=== PATIENT | male | born 1990 | race African-American/Black ===

== ENCOUNTER 2018-11-03 11:06 | Emergency (ER) | payer SELFPAY ==
--- OUTSIDE RECORDS SUMMARY | 2018-11-03 11:08 | XMS REPORT ---
:1990 [facility] Address [address] [place] [address] Care Team Providers Name Role Phone Unavailable Unavailable Unavailable Problems This patient has no known problems. Allergies, Adverse Reactions, Alerts This patient has no known allergies or adverse reactions. Medications This patient has no known medications. Encounters Start End Encounter Admission Attending Care Care Encounter Date/Time Date/Time Type Type Clinicians Facility Department ID 2017-05-15 2017-05-[address] [facility] [id number] 08:24:01 08:24:01 2017-02-23 2017-02-[address] [facility] [id number] 00:00:00 00:00:00
[2018-11-03] MEDS ORDERED: DIAZEPAM 5 MG TABLET ONE (11:43)
[2018-11-03] MEDS ORDERED: HYDROCODONE/APAP 5/325 MG TAB ONE (11:43)
--- NOTE | 2018-11-03 11:55 | RAD REPORT ---
EXAM DESCRIPTION: RAD - Ankle Left 3 View -11/03/2018 11:36 am CLINICAL HISTORY: Left ankle pain status post injury FINDINGS: Curvilinear avulsion fracture involves the lateral malleolus measuring 7 millimeters which appears subacute. No dislocation seen
--- NOTE | 2018-11-03 13:32 | ER ---
Nurse's Notes [facility] Name: Olivia Mosley Age: 28 yrs Sex: Male : 1990 Arrival Date: 11/03/2018 Time: 11:09 Bed 8 Private MD: Diagnosis: Nondisplaced fracture of lateral malleolus of left fibula Presentation: 11/03 11:09 Transition of care: patient was not received from another setting of care. Care prior sv to arrival: None. 11:09 Method Of Arrival: Ambulatory sv 11:10 Presenting complaint: Patient states: left ankle pain x 1 week. Onset of symptoms was sv October 27, 2018. 11:10 Acuity: ARACELIS 4 sv 11:42 Risk Assessment: Do you want to hurt yourself or someone else? Patient reports no ph desire to harm self or others. Initial Sepsis Screen: Does the patient meet any 2 criteria? No. Patient's initial sepsis screen is negative. Does the patient have a suspected source of infection? No. Patient's initial sepsis screen is negative. Triage Assessment: 11:13 General: Appears in no apparent distress. uncomfortable, well developed, Behavior is sv calm, cooperative, appropriate for age. Pain: Complains of pain in left ankle Pain currently is 6 out of 10 on a pain scale. Neuro: Level of Consciousness is awake, alert, obeys commands, Oriented to person, place, time, situation, Gait is steady. Respiratory: Respiratory effort is even, unlabored, Respiratory pattern is regular, symmetrical. Historical: - Allergies: 11:11 No Known Allergies; sv - PMHx: 11:11 None; sv - Immunization history:: Adult Immunizations unknown. - Social history:: Smoking status: Patient/guardian denies using tobacco. - Ebola Screening: : No symptoms or risks identified at this time. Screenin:42 Abuse screen: Denies threats or abuse. Denies injuries from another. Nutritional ph screening: No deficits noted. Tuberculosis screening: No symptoms or risk factors identified. Fall Risk None identified. Assessment: 11:30 General: Appears in no apparent distress. uncomfortable, well groomed, Behavior is ph cooperative, appropriate for age, anxious. Pain: Complains of pain in left lateral malleolus and left medial malleolus. Neuro: Level of Consciousness is awake, alert, obeys commands, Oriented to person, place, time, situation. Cardiovascular: Capillary refill < 3 seconds in bilateral fingers Patient's skin is warm and dry. Pulses are palpable in right dorsalis pedis artery and left dorsalis pedis artery. Respiratory: Airway is patent Respiratory effort is even, unlabored. Derm: Skin is intact, is healthy with good turgor, Skin is pink, warm \T\ dry. Musculoskeletal: Circulation, motion, and sensation intact. Range of motion: limited in left ankle Swelling present in left lateral ankle, left medial ankle and anterior aspect of left ankle. Vital Signs: 11:12 BP 135 / 89; Pulse 115; Resp 18; Temp 98.1; Pulse Ox 99% ; Height 5 ft. 6 in. (167.64 sv cm); Pain 6/10; 13:00 BP 127 / 81; Pulse 89; Resp 16; Temp 98.0; Pulse Ox 99% on R/A; Pain 2/10; ph ED Course: 11:09 Patient arrived in ED. mr 11:09 Arm band placed on. sv 11:10 Rodney Morales PA is PHCP. jmm 11:10 Luke Watson MD is Attending Physician. jmm 11:11 Triage completed. sv 11:26 Caron Diaz, RN is Primary Nurse. ph 11:33 Ankle Left 3 View XRAY In Process Unspecified. EDMS 11:42 Patient has correct armband on for positive identification. Bed in low position. Call ph light in reach. Side rails up X 1. Door closed. Noise minimized. Warm blanket given. 13:30 Nahid Aburto MD is Referral Physician. jmm 13:47 Crutch training done. Orthoglass splint: Posterior short lleg splint applied on left em1 leg. stirrup splint applied on left leg. 13:58 No provider procedures requiring assistance completed. Patient did not have IV access ph during this emergency room visit. Administered Medications: 11:37 Drug: Valium 5 mg Route: PO; ph 12:15 Follow up: Response: No adverse reaction; Pain is decreased ph 11:39 Drug: [place] 5 mg-325 mg 1 tabs Route: PO; ph 13:15 Follow up: Response: No adverse reaction; Pain is decreased ph Outcome: 13:31 Discharge ordered by . jmm 13:58 Patient left the ED. ph 13:58 Discharged to home ambulatory, with crutches, with significant other. ph 13:58 Condition: good 13:58 Discharge instructions given to patient, significant other, Instructed on discharge instructions, follow up and referral plans. medication usage, Demonstrated understanding of instructions, follow-up care, medications, Prescriptions given X 1. Signatures: Dispatcher [employer] Mary Ann Alvarez RN RN Rodney Morales PA PA [facility] Nata Babin, [facility] Caron Diaz RN RN ph Corrections: (The following items were deleted from the chart) 11:13 11:12 BP 149 / 126; Pulse 115bpm; Resp 18bpm; Pulse Ox 99%; Temp 98.1F; Height 5 ft. 6 sv in.; Pain 6/10; sv 11:13 11:12 BP 149 / 126; Pulse 115bpm; Resp 18bpm; Pulse Ox 99%; Temp 98.1F; Height 5 ft. 6 sv in.; Pain 6/10; sv
--- NOTE | 2018-11-03 13:32 | EDPHYS ---
Physician Documentation [facility] Name: Olivia Mosley Age: 28 yrs Sex: Male : 1990 Arrival Date: 11/03/2018 Time: 11:09 Bed 8 Private MD: ED Physician Luke Watson HPI: 11/03 11:20 This 28 yrs old Black Male presents to ER via Ambulatory with complaints of Ankle jmm Injury. 11:20 The patient presents with an injury, pain. Onset: The symptoms/episode began/occurred jmm acutely, 2 week(s) ago. This is a 28 year old male with no chronic medical conditions that presents to the ED with complaints of left ankle pain. Patient states he twisted his ankle while running out his door. Patient has had ongoing pain with pain on weight bearing. . Historical: - Allergies: 11:11 No Known Allergies; sv - PMHx: 11:11 None; sv - Immunization history:: Adult Immunizations unknown. - Social history:: Smoking status: Patient/guardian denies using tobacco. - Ebola Screening: : No symptoms or risks identified at this time. ROS: 11:20 Constitutional: Negative for fever, chills, and weight loss, Cardiovascular: Negative jmm for chest pain, palpitations, and edema, Respiratory: Negative for shortness of breath, cough, wheezing, and pleuritic chest pain. 11:20 MS/extremity: Positive for injury or acute deformity, pain, swelling. 11:20 All other systems are negative. Exam: 11:20 Constitutional: This is a well developed, well nourished patient who is awake, alert, jmm and in no acute distress. Head/Face: atraumatic. Eyes: EOMI, no conjunctival erythema appreciated ENT: Moist Mucus Membranes Neck: Trachea midline, Supple Chest/axilla: Normal chest wall appearance and motion. Cardiovascular: Regular rate and rhythm. No edema appreciated Respiratory: Normal respirations, no respiratory distress appreciated Abdomen/GI: Non distended, soft Back: Normal ROM Skin: General appearance color normal 11:20 Musculoskeletal/extremity: swelling noted to the left ankle, left lateral malleolus tender to palpation, full dorsalis pulse, compartments are soft, NVI. No pain on palpation of the left 5th metatarsal.. Vital Signs: 11:12 BP 135 / 89; Pulse 115; Resp 18; Temp 98.1; Pulse Ox 99% ; Height 5 ft. 6 in. (167.64 sv cm); Pain 6/10; 13:00 BP 127 / 81; Pulse 89; Resp 16; Temp 98.0; Pulse Ox 99% on R/A; Pain 2/10; ph Procedures: 12:11 Splinting: Splint applied to anterior aspect of left ankle using Orthoglass splint, patsy applied by tech. Examined by me, post splint application: neurovascular intact, 2+ distal pulses palpable, brisk capillary refill noted, Patient tolerated well. MDM: 11:20 Patient medically screened. [facility] 13:28 Data reviewed: vital signs, nurses notes, radiologic studies, plain films. Counseling: patsy I had a detailed discussion with the patient and/or guardian regarding: the historical points, exam findings, and any diagnostic results supporting the discharge/admit diagnosis, radiology results, the need for outpatient follow up, to return to the emergency department if symptoms worsen or persist or if there are any questions or concerns that arise at home. ED course: Patient advised to follow up with ortho. Given compartment syndrome return precautions. Patient understood and agrees with the plan of care. . 11/03 11:21 Order name: Ankle Left 3 View XRAY; Complete Time: 11:56 [facility] 11/03 11:57 Order name: Crutches; Complete Time: 13:47 [facility] 11/03 12:34 Order name: Posterior Orthoglass Ankle Splint: with stirrup; Complete Time: 13:46 [facility] Administered Medications: 11:37 Drug: Valium 5 mg Route: PO; ph 12:15 Follow up: Response: No adverse reaction; Pain is decreased ph 11:39 Drug: [place] 5 mg-325 mg 1 tabs Route: PO; ph 13:15 Follow up: Response: No adverse reaction; Pain is decreased ph Disposition: 11/04 07:46 Co-signature as Attending Physician, Luke Watson MD I agree with the assessment and aldair plan of care. Disposition: 11/03/18 13:31 Discharged to Home. Impression: Nondisplaced fracture of lateral malleolus of left fibula. - Condition is Stable. - Discharge Instructions: Ankle Fracture. - Prescriptions for Ultracet 37.5- 325 mg Oral Tablet - take 1 tablet by ORAL route every 6 hours - for up to 5 days; do not exceed 8 tablets per day.; 12 tablet. - Medication Reconciliation Form, Thank You Letter, Antibiotic Education, Prescription Opioid Use, Work release form form. - Follow up: Nahid Aburto MD; When: 2 - 3 days; Reason: Recheck today's complaints, Continuance of care, Re-evaluation by your physician. Signatures: Dispatcher [employer] Mary Ann Alvarez RN RN sv Anderson, Corey, MD MD cha Mickail, Joel, PA PA jmm Hall, Patricia, RN RN ph Corrections: (The following items were deleted from the chart) 11/03 12:34 11:57 Splint - Posterior Leg ordered. patsy garner 13:58 13:31 11/03/2018 13:31 Discharged to Home. Impression: Nondisplaced fracture of lateral ph malleolus of left fibula. Condition is Stable. Forms are Medication Reconciliation Form, Thank You Letter, Antibiotic Education, Prescription Opioid Use. Follow up: Nahid Aburto; When: 2 - 3 days; Reason: Recheck today's complaints, Continuance of care, Re-evaluation by your physician. [email or web address]
== END 2018-11-03 13:58 | disposition home or self-care (01) ==
LOC: ER 11:06
PROC: 2W3RX1Z Immobilization of Left Lower Leg using Splint (ICD-10-PCS; principal; 2018-11-03)
DX: S82.65XA Nondisplaced fracture of lateral malleolus of left fibula, initial encounter for closed fracture (principal); X50.1XXA Overexertion from prolonged static or awkward postures, initial encounter; Y93.02 Activity, running
CPT/HCPCS: 99284

== ENCOUNTER 2018-12-01 22:03 | Emergency (ER) | payer SELFPAY ==
--- OUTSIDE RECORDS SUMMARY | 2018-12-01 22:06 | XMS REPORT ---
:1990 [facility] Address [address] [place] [address] Care Team Providers Name Role Phone Unavailable Unavailable Unavailable Problems This patient has no known problems. Allergies, Adverse Reactions, Alerts This patient has no known allergies or adverse reactions. Medications This patient has no known medications. Encounters Start End Encounter Admission Attending Care Care Encounter Date/Time Date/Time Type Type Clinicians Facility Department ID 2017-05-15 2017-05-[address] [facility] [id number] 08:24:01 08:24:01 2017-02-23 2017-02-[address] [facility] [id number] 00:00:00 00:00:00
[2018-12-01] MEDS ORDERED: KETOROLAC 30 MG/ML INJ ONE (23:48)
[2018-12-01] MEDS ORDERED: NA CHLORIDE 0.9% 1,000 ML ONE (23:48)
[2018-12-01] MEDS ORDERED: ONDANSETRON 4 MG/2 ML VIAL ONE (23:48)
[2018-12-01 23:54] LABS: Absolute Lymphocytes (CBC) 2.5 K/uL (0.7-4.9); Absolute Monocytes 0.7 K/uL (0.1-1.3); Absolute Neutrophil 6.4 K/uL (1.8-8.0); Basophils % 0.4 % (0-1.3); Eosinophils % 1.4 % (0-4.4); Hematocrit 39.6 % (39.6-49.0); MPV 9.4 fL (7.6-11.3); Monocytes % 7.5 % (3.3-12.3); RBC Red Blood Cell Count 4.66 M/uL (4.33-5.43)
[2018-12-02 00:15] LABS: ALT/SGPT 39 U/L (12-78); AST/SGOT 28 U/L (15-37); Albumin 3.8 g/dL (3.4-5.0); Alkaline Phosphatase 124 U/L (45-117); BUN Blood Urea Nitrogen 14 mg/dL (7-18); Bicarbonate 26 mmol/L (21-32); Bilirubin Direct < 0.1 mg/dL (0-0.2); Bilirubin Total 0.1 mg/dL (0.2-1.0); Glucose Level 81 mg/dL (74-106); Lipase 186 U/L (73-393); Potassium 3.4 mmol/L (3.5-5.1); Protein, Total 7.7 g/dL (6.4-8.2); Sodium Level 142 mmol/L (136-145)
--- NOTE | 2018-12-02 00:52 | EDPHYS ---
Physician Documentation [facility] Name: Olivia Mosley Age: 28 yrs Sex: Male : 1990 Arrival Date: 12/01/2018 Time: 22:04 Bed 25 Private MD: ED Physician David Irving HPI: 12/02 04:54 This 28 yrs old Black Male presents to ER via Ambulatory with complaints of Vomiting, tw4 Dizziness, Weakness, Sore Throat. 04:54 The patient presents to the emergency department with vomiting. Onset: The tw4 symptoms/episode began/occurred today. The symptoms are aggravated by nothing. The symptoms are alleviated by nothing. Associated signs and symptoms: The patient has no apparent associated signs or symptoms. The patient has not experienced similar symptoms in the past. Historical: - Allergies: 12/01 22:09 No Known Allergies; la1 - PMHx: 22:09 Hypertension; la1 - Immunization history:: Adult Immunizations up to date. - Social history:: Smoking status: Patient uses tobacco products, smokes two packs cigarettes per day. - Ebola Screening: : No symptoms or risks identified at this time. ROS: 12/02 04:54 Constitutional: Negative for fever, chills, and weight loss, Eyes: Negative for injury, tw4 pain, redness, and discharge, Cardiovascular: Negative for chest pain, palpitations, and edema, Respiratory: Negative for shortness of breath, cough, wheezing, and pleuritic chest pain, Back: Negative for injury and pain, MS/Extremity: Negative for injury and deformity, Skin: Negative for injury, rash, and discoloration. Abdomen/GI: Positive for vomiting, Negative for abdominal pain, black/tarry stool, rectal pain, rectal bleeding. Neuro: Positive for weakness, Negative for loss of consciousness, numbness, syncope. Exam: 04:54 Constitutional: This is a well developed, well nourished patient who is awake, alert, tw4 and in no acute distress. Head/Face: Normocephalic, atraumatic. Neck: Trachea midline, no thyromegaly or masses palpated, and no cervical lymphadenopathy. Supple, full range of motion without nuchal rigidity, or vertebral point tenderness. No Meningismus. Chest/axilla: Normal chest wall appearance and motion. Nontender with no deformity. No lesions are appreciated. Cardiovascular: Regular rate and rhythm with a normal S1 and S2. No gallops, murmurs, or rubs. Normal PMI, no JVD. No pulse deficits. Respiratory: Lungs have equal breath sounds bilaterally, clear to auscultation and percussion. No rales, rhonchi or wheezes noted. No increased work of breathing, no retractions or nasal flaring. Abdomen/GI: Soft, non-tender, with normal bowel sounds. No distension or tympany. No guarding or rebound. No evidence of tenderness throughout. Back: No spinal tenderness. No costovertebral tenderness. Full range of motion. Vital Signs: 12/01 22:09 BP 128 / 99; Pulse 118; Resp 16; Temp 98.7; Pulse Ox 98% on R/A; Weight 90.72 kg; la1 Height 5 ft. 6 in. (167.64 cm); 12/02 01:07 BP 121 / 78; Pulse 79; Resp 17; Temp 98; Pulse Ox 100% ; rv 12/01 22:09 Body Mass Index 32.28 (90.72 kg, 167.64 cm) la1 MDM: 12/01 22:49 Patient medically screened. tw4 12/02 04:54 Differential diagnosis: Nonspecific abd pain, gastritis. Data reviewed: vital signs, tw4 nurses notes. Data interpreted: Pulse oximetry: Interpretation: normal. Counseling: I had a detailed discussion with the patient and/or guardian regarding: the historical points, exam findings, and any diagnostic results supporting the discharge/admit diagnosis, lab results. Medication response: Zofran relieved the patient's nausea. Response to treatment: the patient's symptoms have resolved after treatment, nausea improved , and as a result, I will discharge patient. Special discussion: I discussed with the patient/guardian in detail that at this point there is no indication for admission to the hospital. It is understood, however, that if the symptoms persist or worsen the patient needs to return immediately for re-evaluation. 12/01 23:29 Order name: Basic Metabolic Panel tw4 12/01 23:30 Order name: CBC with Diff 4 12/01 23:30 Order name: Creatinine for Radiology 4 12/01 23:30 Order name: Hepatic Function 12/01:30 Order name: Lipase 12/01 23:30 Order name: Flu tw 12/01 23:30 Order name: IV Saline Lock; Complete Time: 23:44 tw4 12/01 23:30 Order name: Labs collected and sent; Complete Time: 23:44 [facility] 12/01 23:30 Order name: Basic Metabolic Panel EDMS 12/01 23:30 Order name: CBC with Automated Diff EDMS Administered Medications: 12/01 23:42 Drug: NS 0.9% 1000 ml Route: IV; Rate: 1 bolus; Site: left antecubital; rv 12/02 00:42 Follow up: IV Status: Completed infusion la1 12/01 23:42 Drug: TORadol 30 mg Route: IVP; Site: left antecubital; rv 12/02 00:38 Follow up: Response: No adverse reaction; Pain is decreased la1 00:43 Follow up: Response: No adverse reaction; Pain is decreased la1 12/01 23:42 Drug: Zofran 4 mg Route: IVP; Site: left antecubital; rv 12/02 00:38 Follow up: Response: No adverse reaction la1 00:43 Follow up: Response: No adverse reaction la1 Disposition: 12/02/18 00:51 Discharged to Home. Impression: nonspecific viral syndrome, Vomiting, Dehydration. - Condition is Stable. - Discharge Instructions: Dehydration, Adult, Nausea and Vomiting, Adult, Viral Respiratory Infection. - Prescriptions for Zofran 4 mg Oral Tablet - take 1 tablet by ORAL route every 12 hours As needed; 20 tablet. - Medication Reconciliation Form, Thank You Letter, Antibiotic Education, Prescription Opioid Use, Work release form form. - Follow up: Private Physician; When: Upon discharge from the Emergency Department; Reason: If symptoms return, Recheck today's complaints, Continuance of care. - Problem is new. - Symptoms have improved. Signatures: Dispatcher [employer] EDNC Emir Lara RN RN la1 David Irving MD MD tw4 René Latham RN RN rv Corrections: (The following items were deleted from the chart) 00:52 00:51 12/02/2018 00:51 Discharged to Home. Impression: nonspecific viral syndrome. tw4 Condition is Stable. Forms are Medication Reconciliation Form, Thank You Letter, Antibiotic Education, Prescription Opioid Use. Follow up: Private Physician; When: Upon discharge from the Emergency Department; Reason: If symptoms return, Recheck today's complaints, Continuance of care. Problem is new. Symptoms have improved. tw4 01:09 00:52 12/02/2018 00:51 Discharged to Home. Impression: nonspecific viral syndrome; rv Vomiting; Dehydration. Condition is Stable. Forms are Medication Reconciliation Form, Thank You Letter, Antibiotic Education, Prescription Opioid Use. Follow up: Private Physician; When: Upon discharge from the Emergency Department; Reason: If symptoms return, Recheck today's complaints, Continuance of care. Problem is new. Symptoms have improved. tw4
--- NOTE | 2018-12-02 00:52 | ER ---
Nurse's Notes [facility] Name: Olivia Mosley Age: 28 yrs Sex: Male : 1990 Arrival Date: 12/01/2018 Time: 22:04 Bed 25 Private MD: Diagnosis: nonspecific viral syndrome;Vomiting;Dehydration Presentation: 12/01 22:08 Presenting complaint: Patient states: I was at work and got a KNAPP and felt woozy then la1 threw up, now I feel like shit, congestion, nausea, KNAPP. Transition of care: patient was not received from another setting of care. Onset of symptoms was December 01, 2018. Risk Assessment: Do you want to hurt yourself or someone else? Patient reports no desire to harm self or others. Initial Sepsis Screen: Does the patient meet any 2 criteria? No. Patient's initial sepsis screen is negative. Does the patient have a suspected source of infection? No. Patient's initial sepsis screen is negative. Care prior to arrival: None. 22:08 Method Of Arrival: Ambulatory la1 22:08 Acuity: ARACELIS 3 la1 Triage Assessment: 22:00 GI: Reports vomiting. rv Historical: - Allergies: 22:09 No Known Allergies; la1 - PMHx: 22:09 Hypertension; la1 - Immunization history:: Adult Immunizations up to date. - Social history:: Smoking status: Patient uses tobacco products, smokes two packs cigarettes per day. - Ebola Screening: : No symptoms or risks identified at this time. Screenin:53 Abuse screen: Denies threats or abuse. Nutritional screening: No deficits noted. la1 Tuberculosis screening: No symptoms or risk factors identified. Fall Risk None identified. Assessment: 23:52 General: Appears in no apparent distress. Behavior is calm, cooperative. Pain: la1 Complains of pain in headache. Neuro: Level of Consciousness is awake, alert, obeys commands, Oriented to person, place, time, situation, Digital Sales Representative are equal bilaterally Moves all extremities. Full function Gait is steady, Speech is normal, Facial symmetry appears normal. Cardiovascular: Capillary refill < 3 seconds Patient's skin is warm and dry. Respiratory: Airway is patent Respiratory effort is even, unlabored, Respiratory pattern is regular, symmetrical. GI: Abdomen is round non-distended, Bowel sounds present X 4 quads. Abd is soft and non tender X 4 quads. : No signs and/or symptoms were reported regarding the genitourinary system. 12/02 00:38 Reassessment: Patient appears in no apparent distress at this time. No changes from la1 previously documented assessment. Patient and/or family updated on plan of care and expected duration. Pain level reassessed. Patient is alert, oriented x 3, equal unlabored respirations, skin warm/dry/pink. Vital Signs: 12/01 22:09 BP 128 / 99; Pulse 118; Resp 16; Temp 98.7; Pulse Ox 98% on R/A; Weight 90.72 kg; la1 Height 5 ft. 6 in. (167.64 cm); 12/02 01:07 BP 121 / 78; Pulse 79; Resp 17; Temp 98; Pulse Ox 100% ; rv 12/01 22:09 Body Mass Index 32.28 (90.72 kg, 167.64 cm) la1 ED Course: 12/01 22:04 Patient arrived in ED. es 22:08 Triage completed. la1 22:09 Arm band placed on left wrist. la1 22:49 David Irving MD is Attending Physician. tw4 23:43 Initial lab(s) drawn, by me, sent to lab. Flu and/or RSV swab sent to lab. Inserted lt1 saline lock: 20 gauge in left antecubital area, using aseptic technique. 23:44 Flu Sent. lt1 23:52 Emir Lara, RN is Primary Nurse. la1 23:53 Call light in reach. la1 12/02 00:43 CBC with Diff Sent. la1 00:43 Basic Metabolic Panel Sent. la1 01:08 No provider procedures requiring assistance completed. IV discontinued, intact, rv bleeding controlled, No redness/swelling at site. Pressure dressing applied. Administered Medications: 12/01 23:42 Drug: NS 0.9% 1000 ml Route: IV; Rate: 1 bolus; Site: left antecubital; rv 12/02 00:42 Follow up: IV Status: Completed infusion la1 12/01 23:42 Drug: TORadol 30 mg Route: IVP; Site: left antecubital; rv 12/02 00:38 Follow up: Response: No adverse reaction; Pain is decreased la1 00:43 Follow up: Response: No adverse reaction; Pain is decreased la1 12/01 23:42 Drug: Zofran 4 mg Route: IVP; Site: left antecubital; rv 12/02 00:38 Follow up: Response: No adverse reaction la1 00:43 Follow up: Response: No adverse reaction la1 Outcome: 00:51 Discharge ordered by . kallie 01:09 Discharged to home ambulatory. rv 01:09 Condition: good 01:09 Discharge instructions given to patient, family, Instructed on discharge instructions, follow up and referral plans. medication usage, Demonstrated understanding of instructions, follow-up care, medications, Prescriptions given X 1. 01:09 Patient left the ED. rv Signatures: Macarena Jerez Lee RN RN la1 David Irving MD MD tw4 René Latham RN RN Denisse Avina [facility]
== END 2018-12-02 01:09 | disposition home or self-care (01) ==
LOC: ER 22:03
DX: B34.9 Viral infection, unspecified (principal); R11.10 Vomiting, unspecified; R42 Dizziness and giddiness; I10 Essential (primary) hypertension; F17.210 Nicotine dependence, cigarettes, uncomplicated; E86.0 Dehydration
CPT/HCPCS: 36415; 80048; 80076; 83690; 85025; 87804; 96361; 96374; 96375; 99284; J2405; J7030

== ENCOUNTER 2018-12-14 11:16 | Emergency (ER) | payer SELFPAY ==
--- OUTSIDE RECORDS SUMMARY | 2018-12-14 11:18 | XMS REPORT ---
:1990 [facility] Address [address] [place] [address] Care Team Providers Name Role Phone Unavailable Unavailable Unavailable Problems This patient has no known problems. Allergies, Adverse Reactions, Alerts This patient has no known allergies or adverse reactions. Medications This patient has no known medications. Encounters Start End Encounter Admission Attending Care Care Encounter Date/Time Date/Time Type Type Clinicians Facility Department ID 2017-05-15 2017-05-15 Outpatient [facility] [id number] 08:24:01 08:24:01 2017-02-23 2017-02-23 Outpatient [facility] [id number] 00:00:00 00:00:00
[2018-12-14 11:50] LABS: Absolute Lymphocytes (CBC) 1.6 K/uL (0.7-4.9); Absolute Monocytes 1.3 K/uL (0.1-1.3); Absolute Neutrophil 8.9 K/uL (1.8-8.0); Basophils % 0.4 % (0-1.3); Eosinophils % 1.4 % (0-4.4); Hematocrit 40.1 % (39.6-49.0); Lymphocytes % 13.7 % (15.3-44.8); MPV 8.9 fL (7.6-11.3); Monocytes % 10.8 % (3.3-12.3)
[2018-12-14 12:08] LABS: ALT/SGPT 33 U/L (12-78); AST/SGOT 18 U/L (15-37); Albumin 3.6 g/dL (3.4-5.0); Alkaline Phosphatase 131 U/L (45-117); BUN Blood Urea Nitrogen 11 mg/dL (7-18); Bicarbonate 27 mmol/L (21-32); Bilirubin Direct < 0.1 mg/dL (0-0.2); Bilirubin Total 0.2 mg/dL (0.2-1.0); Glucose Level 79 mg/dL (74-106); Lipase 190 U/L (73-393); Potassium 3.7 mmol/L (3.5-5.1); Protein, Total 7.8 g/dL (6.4-8.2); Sodium Level 141 mmol/L (136-145)
[2018-12-14] MEDS ORDERED: MORPHINE 4 MG/ML SYR ONE (12:35)
[2018-12-14] MEDS ORDERED: ONDANSETRON 4 MG/2 ML VIAL ONE (12:35)
--- NOTE | 2018-12-14 13:01 | RAD REPORT ---
EXAM DESCRIPTION: CTAbdomen Pelvis W Contrast - 12/14/2018 12:38 pm CLINICAL HISTORY: Abdominal pain. ABD PAIN COMPARISON: No comparisons TECHNIQUE: Biphasic CT imaging of the abdomen and pelvis was performed with 100 ml non-ionic IV cont rast. All CT scans are performed using dose optimization technique as appropriate and may include automated exposure control or mA/KV adjustment according to patient size. FINDINGS: The lung bases are clear.Small hiatal hernia The liver, spleen, pancreas, adrenal glands and kidneys are within normal limits. No bowel obstruction, free air, free fluid or abscess. The appendix is normal. No evidence of signi ficant lymphadenopathy. No suspicious bony findings. IMPRESSION: No acute intra-abdominal or pelvic finding.
--- NOTE | 2018-12-14 13:28 | ER ---
Nurse's Notes [facility] Name: Olivia Mosley Age: 28 yrs Sex: Male : 1990 Arrival Date: 12/14/2018 Time: 11:20 Bed 20 Private MD: Unknown, Unknown Diagnosis: Noninfective gastroenteritis and colitis, unspecified Presentation: 12/14 11:21 Presenting complaint: Patient states: bodyaches, back pain, neck pain, n/v/d x 5 days. sv Transition of care: patient was not received from another setting of care. Onset of symptoms was December 09, 2018. Care prior to arrival: None. 11:21 Method Of Arrival: Wheelchair sv 11:21 Acuity: ARACELIS 3 sv 11:35 Risk Assessment: Do you want to hurt yourself or someone else? Patient reports no em desire to harm self or others. Initial Sepsis Screen: Does the patient meet any 2 criteria? No. Patient's initial sepsis screen is negative. Does the patient have a suspected source of infection? No. Patient's initial sepsis screen is negative. Historical: - Allergies: 11:23 No Known Allergies; sv - PMHx: 11:23 Hypertension; sv - PSHx: 11:23 None; sv - Immunization history:: Adult Immunizations up to date. - Social history:: Smoking status: Patient uses tobacco products, smokes one pack cigarettes per day. - Ebola Screening: : No symptoms or risks identified at this time. Screenin:35 Abuse screen: Denies threats or abuse. Nutritional screening: No deficits noted. em Tuberculosis screening: No symptoms or risk factors identified. Fall Risk None identified. Assessment: 11:35 General: Appears in no apparent distress. comfortable, Behavior is calm, cooperative, em Reports fever for 12-24 hours. Pain: Complains of pain in left lower quadrant Pain currently is 8 out of 10 on a pain scale. Neuro: Level of Consciousness is awake, alert, obeys commands, Oriented to person, place, time, situation. Cardiovascular: Capillary refill < 3 seconds Patient's skin is warm and dry. Respiratory: Reports cough that is non-productive, Airway is patent Respiratory effort is even, unlabored, Respiratory pattern is regular, symmetrical. GI: Abdomen is flat, Bowel sounds present X 4 quads. Abd is soft X 4 quads Abdomen is tender to palpation in left lower quadrant Reports diarrhea, nausea, vomiting, Patient currently denies bloody stool. : Denies burning with urination. EENT: Throat is clear is pink. Derm: Skin is intact, is healthy with good turgor, Skin is pink, warm \T\ dry. Musculoskeletal: Capillary refill < 3 seconds, Range of motion: intact in all extremities. 11:45 General: The previous assessment is accurate, call light remains within reach. ss 12:15 Reassessment: Patient appears in no apparent distress at this time. request medication em for nausea and pain, provider notified, new medication orders received. 13:30 Reassessment: Patient appears in no apparent distress at this time. Patient and/or em family updated on plan of care and expected duration. Pain level reassessed. Patient is alert, oriented x 3, equal unlabored respirations, skin warm/dry/pink. rates pain 4/10 Patient states feeling better. Patient states symptoms have improved. Vital Signs: 11:23 BP 131 / 94; Pulse 89; Resp 20; Temp 97.8; Pulse Ox 100% ; Weight 79.38 kg; Height 5 sv ft. 6 in. (167.64 cm); Pain 8/10; 12:23 BP 118 / 81; Pulse 81; Resp 18; Pulse Ox 99% on R/A; Pain 8/10; em 11:23 Body Mass Index 28.25 (79.38 kg, 167.64 cm) sv ED Course: 11:20 Patient arrived in ED. ag5 11:21 Unknown, Unknown is Private Physician. ag5 11:23 Triage completed. sv 11:24 [facility] nh 11:24 Brian Madrid MD is Attending Physician. nh 11:24 Arm band placed on. sv 11:35 Patient has correct armband on for positive identification. Bed in low position. Call em light in reach. Adult w/ patient. 11:35 Initial lab(s) drawn, by me, sent to lab. Inserted saline lock: 20 gauge in right em antecubital area, using aseptic technique. Blood collected. 11:39 Radiology exam delayed due to lab results not completed at this time. (BUN/Creatinine). mw3 11:43 Gerardo Mckeon LVN is Primary Nurse. em 12:[address] via stretcher. mw3 12:38 CT completed. Patient tolerated procedure well. Patient moved back from CT. mw3 12:41 CT Abd/Pelvis - W/Contrast In Process Unspecified. EDMS 13:48 No provider procedures requiring assistance completed. IV discontinued, intact, em bleeding controlled, No redness/swelling at site. Pressure dressing applied. Administered Medications: 12:24 Drug: Zofran 4 mg Route: IVP; Site: right antecubital; ss 13:48 Follow up: Response: No adverse reaction; Nausea is decreased em 12:26 Drug: morphine 4 mg Route: IVP; Site: right antecubital; ss 13:48 Follow up: Response: No adverse reaction; Pain is decreased em Outcome: 13:26 Discharge ordered by MD. nh 13:48 Discharged to home ambulatory, with family. em 13:48 Condition: stable 13:48 Discharge instructions given to patient, family, Instructed on discharge instructions, follow up and referral plans. medication usage, Demonstrated understanding of instructions, follow-up care, medications, Prescriptions given X 2. 13:51 Patient left the ED. em Signatures: Dispatcher [employer] EDMary Ann Duarte, RN RN Lily Villalba, LOAN ORIGINATOR LOAN ORIGINATOR pa Gerardo Mckeon, POLICE OFFICER BOOKING POLICE OFFICER BOOKING em Flores Vickers RN RN ss Willis, Michelle mw3 Michlea Hodges ag5
--- NOTE | 2018-12-14 13:28 | EDPHYS ---
Physician Documentation [facility] Name: Olivia Mosley Age: 28 yrs Sex: Male : 1990 Arrival Date: 12/14/2018 Time: 11:20 Bed 20 Private MD: Unknown, Unknown ED Physician Brian Madrid HPI: 12/14 13:21 This 28 yrs old Black Male presents to ER via Wheelchair with complaints of nh Nausea/Vomiting/Diarrhea, BODY ACHES. 13:21 The patient presents to the emergency department with nausea, vomiting, diarrhea. nh Onset: The symptoms/episode began/occurred 2 day(s) ago, 1 week(s) ago. Possible causes: unknown. The symptoms are aggravated by food , The symptoms are alleviated by nothing. Associated signs and symptoms: Pertinent positives: abdominal pain. Severity of symptoms: At their worst the symptoms were moderate just prior to arrival, in the emergency department the symptoms are unchanged. The patient has not experienced similar symptoms in the past. The patient has not recently seen a physician. Historical: - Allergies: 11:23 No Known Allergies; sv - PMHx: 11:23 Hypertension; sv - PSHx: 11:23 None; sv - Immunization history:: Adult Immunizations up to date. - Social history:: Smoking status: Patient uses tobacco products, smokes one pack cigarettes per day. - Ebola Screening: : No symptoms or risks identified at this time. ROS: 13:21 Eyes: Negative for injury, pain, redness, and discharge, ENT: Negative for injury, nh pain, and discharge, Neck: Negative for injury, pain, and swelling, Cardiovascular: Negative for chest pain, palpitations, and edema, Respiratory: Negative for shortness of breath, cough, wheezing, and pleuritic chest pain, Back: Negative for injury and pain, : Negative for injury, bleeding, discharge, and swelling, MS/Extremity: Negative for injury and deformity, Skin: Negative for injury, rash, and discoloration, Neuro: Negative for headache, weakness, numbness, tingling, and seizure, Psych: Negative for depression, anxiety, suicide ideation, homicidal ideation, and hallucinations, Allergy/Immunology: Negative for hives, rash, and allergies, Endocrine: Negative for neck swelling, polydipsia, polyuria, polyphagia, and marked weight changes, Hematologic/Lymphatic: Negative for swollen nodes, abnormal bleeding, and unusual bruising. 13:21 Constitutional: Positive for body aches. 13:21 Abdomen/GI: Positive for abdominal pain, nausea and vomiting. Exam: 13:21 Constitutional: This is a well developed, well nourished patient who is awake, alert, nh and in no acute distress. Head/Face: Normocephalic, atraumatic. Eyes: Pupils equal round and reactive to light, extra-ocular motions intact. Lids and lashes normal. Conjunctiva and sclera are non-icteric and not injected. Cornea within normal limits. Periorbital areas with no swelling, redness, or edema. ENT: Nares patent. No nasal discharge, no septal abnormalities noted. Tympanic membranes are normal and external auditory canals are clear. Oropharynx with no redness, swelling, or masses, exudates, or evidence of obstruction, uvula midline. Mucous membranes moist. Neck: Trachea midline, no thyromegaly or masses palpated, and no cervical lymphadenopathy. Supple, full range of motion without nuchal rigidity, or vertebral point tenderness. No Meningismus. Chest/axilla: Normal chest wall appearance and motion. Nontender with no deformity. No lesions are appreciated. Cardiovascular: Regular rate and rhythm with a normal S1 and S2. No gallops, murmurs, or rubs. Normal PMI, no JVD. No pulse deficits. Respiratory: Lungs have equal breath sounds bilaterally, clear to auscultation and percussion. No rales, rhonchi or wheezes noted. No increased work of breathing, no retractions or nasal flaring. Back: No spinal tenderness. No costovertebral tenderness. Full range of motion. Skin: Warm, dry with normal turgor. Normal color with no rashes, no lesions, and no evidence of cellulitis. MS/ Extremity: Pulses equal, no cyanosis. Neurovascular intact. Full, normal range of motion. Neuro: Awake and alert, GCS 15, oriented to person, place, time, and situation. Cranial nerves II-XII grossly intact. Motor strength 5/5 in all extremities. Sensory grossly intact. Cerebellar exam normal. Normal gait. Psych: Awake, alert, with orientation to person, place and time. Behavior, mood, and affect are within normal limits. 13:21 Abdomen/GI: Inspection: abdomen appears normal, Bowel sounds: normal, Palpation: moderate abdominal tenderness, in all quadrants. Vital Signs: 11:23 BP 131 / 94; Pulse 89; Resp 20; Temp 97.8; Pulse Ox 100% ; Weight 79.38 kg; Height 5 sv ft. 6 in. (167.64 cm); Pain 8/10; 12:23 BP 118 / 81; Pulse 81; Resp 18; Pulse Ox 99% on R/A; Pain 8/10; em 11:23 Body Mass Index 28.25 (79.38 kg, 167.64 cm) sv MDM: 11:24 Patient medically screened. nh 13:21 Data reviewed: vital signs, nurses notes, lab test result(s), radiologic studies, I nh have discussed the patient's presentation/case with the attending Emergency Department Physician; and as a result, I will discharge patient. Counseling: I had a detailed discussion with the patient and/or guardian regarding: the historical points, exam findings, and any diagnostic results supporting the discharge/admit diagnosis, lab results, radiology results, the need for outpatient follow up, to return to the emergency department if symptoms worsen or persist or if there are any questions or concerns that arise at home. 12/14 11:28 Order name: Basic Metabolic Panel; Complete Time: 12:09 la 12/14 11:28 Order name: CBC with Diff; Complete Time: 12:09 la 12/14 11:28 Order name: Creatinine for Radiology; Complete Time: 12:09 la 12/14 11:28 Order name: Hepatic Function; Complete Time: 12:09 la 12/14 11:28 Order name: Lipase; Complete Time: 12:09 la 12/14 11:30 Order name: CT Abd/Pelvis - W/Contrast; Complete Time: 13:10 la 12/14 11:28 Order name: IV Saline Lock; Complete Time: 11:43 la 12/14 11:28 Order name: Labs collected and sent; Complete Time: 11:43 la Administered Medications: 12:24 Drug: Zofran 4 mg Route: IVP; Site: right antecubital; ss 13:48 Follow up: Response: No adverse reaction; Nausea is decreased em 12:26 Drug: morphine 4 mg Route: IVP; Site: right antecubital; ss 13:48 Follow up: Response: No adverse reaction; Pain is decreased em Disposition: 12/14/18 13:26 Discharged to Home. Impression: Noninfective gastroenteritis and colitis, unspecified. - Condition is Stable. - Discharge Instructions: Viral Gastroenteritis, Adult. - Prescriptions for Bentyl 20 mg Oral Tablet - take 2 tablet by ORAL route every 6 hours As needed; 40 tablet. Zofran 4 mg Oral Tablet - take 1 tablet by ORAL route every 12 hours As needed; 20 tablet. - Medication Reconciliation Form, Thank You Letter, Antibiotic Education, Prescription Opioid Use, Work release form form. - Follow up: Private Physician; When: 5 - 6 days; Reason: Recheck today's complaints. - Problem is new. - Symptoms are unchanged. Addendum: 12/16/2018 06:50 Co-signature as Attending Physician, Brian Madrid MD I agree with the assessment and k dr plan of care. Signatures: Dispatcher [employer] Mary Ann Alvarez, RN RN Brian Connell MD MD [facility] Lily Ruff, TUBE DRAWING SUPERVISOR TUBE DRAWING SUPERVISOR la Gerardo Mckeon, SURGICAL CODER SURGICAL CODER em Flores Vickers, RN RN ss Corrections: (The following items were deleted from the chart) 12/14 13:51 13:26 12/14/2018 13:26 Discharged to Home. Impression: Noninfective gastroenteritis and em colitis, unspecified. Condition is Stable. Forms are Medication Reconciliation Form, Thank You Letter, Antibiotic Education, Prescription Opioid Use. Follow up: Private Physician; When: 5 - 6 days; Reason: Recheck today's complaints. Problem is new. Symptoms are unchanged. la
== END 2018-12-14 13:51 | disposition home or self-care (01) ==
LOC: ER 11:16
DX: K52.9 Noninfective gastroenteritis and colitis, unspecified (principal); I10 Essential (primary) hypertension; F17.210 Nicotine dependence, cigarettes, uncomplicated
CPT/HCPCS: 36415; 74177; 80048; 80076; 83690; 85025; 96374; 96375; 99284; J2405; Q9967

== ENCOUNTER 2018-12-24 17:49 | Emergency (ER) | payer SELFPAY ==
--- OUTSIDE RECORDS SUMMARY | 2018-12-24 17:51 | XMS REPORT ---
:1990 [facility] Address [address] [place] [address] Care Team Providers Name Role Phone Unavailable Unavailable Unavailable Problems This patient has no known problems. Allergies, Adverse Reactions, Alerts This patient has no known allergies or adverse reactions. Medications This patient has no known medications. Encounters Start End Encounter Admission Attending Care Care Encounter Date/Time Date/Time Type Type Clinicians Facility Department ID 2017-05-15 2017-05-15 Outpatient [facility] [id number] 08:24:01 08:24:01 2017-02-23 2017-02-23 Outpatient [facility] [id number] 00:00:00 00:00:00
[2018-12-24 18:31] LABS: Absolute Lymphocytes (CBC) 1.7 K/uL (0.7-4.9); Absolute Monocytes 1.1 K/uL (0.1-1.3); Absolute Neutrophil 8.8 K/uL (1.8-8.0); Basophils % 0.5 % (0-1.3); Eosinophils % 1.3 % (0-4.4); Hematocrit 40.8 % (39.6-49.0); Lymphocytes % 14.1 % (15.3-44.8); MPV 8.6 fL (7.6-11.3); Monocytes % 9.1 % (3.3-12.3); RBC Red Blood Cell Count 4.79 M/uL (4.33-5.43)
[2018-12-24] MEDS ORDERED: FENTANYL CITR 100 MCG/2 ML ONE (18:37)
[2018-12-24] MEDS ORDERED: ONDANSETRON 4 MG/2 ML VIAL ONE (18:37)
[2018-12-24 18:41] LABS: BUN Blood Urea Nitrogen 10 mg/dL (7-18); Bicarbonate 26 mmol/L (21-32); Glucose Level 89 mg/dL (74-106); Potassium 3.6 mmol/L (3.5-5.1); Sodium Level 142 mmol/L (136-145)
--- NOTE | 2018-12-24 19:01 | RAD REPORT ---
EXAM DESCRIPTION: CT - Abdomen Pelvis W Contrast - 12/24/2018 6:42 pm CLINICAL HISTORY: Abdominal pain, fever COMPARISON: CT study December 14 2018. TECHNIQUE: Biphasic, helical CT imaging of the abdomen and pelvis was performed following 100 ml non -ionic IV contrast. Oral contrast was given. All CT scans are performed using dose optimization technique as appropriate and may include automated exposure control or mA/KV adjustment according to patient size. FINDINGS: No suspicious findings in the lung bases. The liver, spleen, and pancreas show no suspicious findings. Gallbladder and biliary tree are also wi thout suspicious finding. Symmetric renal function is seen with no hydronephrosis or suspicious renal mass. No pyelonephritis o r acute parenchymal process. No bladder abnormalities. No adrenal abnormalities. No dilated bowel loops or bowel wall thickening. Appendix is normal. No free air, free fluid or infla mmatory stranding. No hernia, mass or bulky lymphadenopathy. No suspicious bony findings. IMPRESSION: Contrast enhanced CT abdomen and pelvis showing no significant or suspicious finding.
--- NOTE | 2018-12-24 19:10 | EDPHYS ---
Physician Documentation [facility] Name: Olivia Mosley Age: 28 yrs Sex: Male : 1990 Arrival Date: 12/24/2018 Time: 17:52 Bed 7 Private MD: ED Physician Luke Watson HPI: 12/24 18:21 This 28 yrs old Black Male presents to ER via Ambulatory with complaints of Abdominal jr8 Pain, Ear Pain, Sore Throat. 18:21 The patient presents with abdominal pain in the left lower quadrant. Onset: The jr8 symptoms/episode began/occurred gradually, 2 week(s) ago. The symptoms do not radiate. Associated signs and symptoms: none. The symptoms are described as stabbing. Modifying factors: The symptoms are alleviated by nothing, the symptoms are aggravated by movement. Severity of pain: At its worst the pain was moderate in the emergency department the pain is unchanged. The patient has not experienced similar symptoms in the past. The patient has been recently seen by a physician:. Patient stated that about 2 weeks ago he came to ED for n/v/d and generalized lower abdominal discomfort. CT negative for acute findings and diagnosed with gastroenteritis. Stated that those symptoms have resolved but now having localized LLQ abdominal pain that is worsening. Sore throat, ear pain, and chills that started yesterday . Historical: - Allergies: 17:54 No Known Allergies; hj - PMHx: 17:54 Hypertension; hj - PSHx: 17:54 None; hj - Immunization history:: Adult Immunizations up to date. - Ebola Screening: : No symptoms or risks identified at this time. ROS: 18:21 Constitutional: Positive for chills. jr8 18:21 ENT: Positive for ear pain, sore throat. 18:21 Abdomen/GI: Positive for abdominal pain, Negative for nausea, vomiting, and diarrhea, abdominal distension, anorexia, dysphagia, hematemesis, black/tarry stool, rectal pain, rectal bleeding, bowel incontinence, flatulence. 18:21 All other systems are negative. Exam: 18:21 Constitutional: This is a well developed, well nourished patient who is awake, alert, jr8 and in no acute distress. Eyes: Pupils equal round and reactive to light, extra-ocular motions intact. Lids and lashes normal. Conjunctiva and sclera are non-icteric and not injected. Cornea within normal limits. Periorbital areas with no swelling, redness, or edema. Neck: Trachea midline, no thyromegaly or masses palpated, and no cervical lymphadenopathy. Supple, full range of motion without nuchal rigidity, or vertebral point tenderness. No Meningismus. Cardiovascular: Regular rate and rhythm with a normal S1 and S2. No gallops, murmurs, or rubs. Normal PMI, no JVD. No pulse deficits. Respiratory: Lungs have equal breath sounds bilaterally, clear to auscultation and percussion. No rales, rhonchi or wheezes noted. No increased work of breathing, no retractions or nasal flaring. Back: No spinal tenderness. No costovertebral tenderness. Full range of motion. Skin: Warm, dry with normal turgor. Normal color with no rashes, no lesions, and no evidence of cellulitis. MS/ Extremity: Pulses equal, no cyanosis. Neurovascular intact. Full, normal range of motion. Neuro: Awake and alert, GCS 15, oriented to person, place, time, and situation. Cranial nerves II-XII grossly intact. Motor strength 5/5 in all extremities. Sensory grossly intact. Cerebellar exam normal. Normal gait. 18:21 ENT: Exam is negative for earache, ear discharge, TM abnormalities, nasal discharge, Mouth: Lips: moist, Oral mucosa: pink and intact, moist, Gums: pink, Tongue: is moist, Posterior pharynx: Airway: patent, Tonsils: bilaterally enlarged, with erythema, no exudate, no ulcerations, Uvula: midline, non-edematous, no erythema, swelling, is not appreciated, erythema, that is mild. 18:21 Abdomen/GI: Inspection: abdomen appears normal, Bowel sounds: active, all quadrants, Palpation: soft, in all quadrants, moderate abdominal tenderness, in the left lower quadrant, rebound tenderness, is not appreciated, voluntary guarding, is not appreciated, involuntary guarding, is not appreciated, no appreciated organomegaly, Indicators: McBurney's point is not tender, Zhu's sign is negative, Rovsing's sign is negative, Obturator sign is negative, Liver: no appreciated palpable abnormalities. Vital Signs: 17:54 BP 137 / 79; Pulse 94; Resp 18; Temp 98.7(O); Pulse Ox 100% on R/A; Weight 81.65 kg; hj Height 5 ft. 6 in. (167.64 cm); Pain 6/10; 19:19 BP 128 / 67; Pulse 80; Resp 18; Temp 98; Pulse Ox 100% ; rv 17:54 Body Mass Index 29.05 (81.65 kg, 167.64 cm) hj MDM: 17:58 Patient medically screened. jr8 19:05 Differential diagnosis: bowel obstruction, diverticulitis, non-specific abd pain, jr8 Pyelonephritis, Testicular Torsion, Ureterolithiasis, urinary tract infection, colitis. Data reviewed: vital signs, nurses notes, lab test result(s), radiologic studies, CT scan, and as a result, I will discharge patient. Data interpreted: Pulse oximetry: on room air is 100 %. Interpretation: normal. Counseling: I had a detailed discussion with the patient and/or guardian regarding: the historical points, exam findings, and any diagnostic results supporting the discharge/admit diagnosis, lab results, radiology results, the need for outpatient follow up, a order packer or packager, to return to the emergency department if symptoms worsen or persist or if there are any questions or concerns that arise at home. 12/24 18:05 Order name: Strep; Complete Time: 18:[address] [facility] 12/24 18:11 Order name: Basic Metabolic Panel; Complete Time: 18:[address] [facility] 12/24 18:11 Order name: CBC with Diff; Complete Time: 18:50 8 12/24 18:11 Order name: Creatinine for Radiology; Complete Time: 18:[address] [facility] 12/24 18:13 Order name: CT Abd/Pelvis - IV Contrast Only; Complete Time: 19:04 8 12/24 18:33 Order name: Throat Culture [facility] 12/24 18:11 Order name: IV Saline Lock; Complete Time: 18:[address] [facility] 12/24 18:11 Order name: Labs collected and sent; Complete Time: 18:26 Administered Medications: 18:25 Drug: fentaNYL (PF) 50 mcg Route: IVP; Site: right antecubital; rv 19:19 Follow up: Response: No adverse reaction; Pain is decreased rv 18:25 Drug: Zofran 4 mg Route: IVP; Site: right antecubital; rv 19:19 Follow up: Response: No adverse reaction rv Disposition: 12/24/18 19:06 Discharged to Home. Impression: Abdominal and pelvic pain, Acute upper respiratory infection, unspecified. - Condition is Stable. - Discharge Instructions: Abdominal Pain, Adult, Upper Respiratory Infection, Adult. - Prescriptions for Tessalon Perles 100 mg Oral Capsule - take 1 capsule by ORAL route every 8 hours As needed; 15 capsule. Guaifenesin AC 10- 100 mg/5 mL Oral Liquid - take 10 milliliter by ORAL route every 4 hours As needed; 240 milliliter. - Work release form, Family Work Release, Medication Reconciliation Form, Thank You Letter, Antibiotic Education, Prescription Opioid Use form. - Follow up: Anthony Khalil MD; When: 5 - 6 days; Reason: Recheck today's complaints, Continuance of care, Re-evaluation by your physician. - Problem is new. - Symptoms have improved. Signatures: Dispatcher [employer] EDMS Mehrdad Dennison PA PA jr8 Curry Damon RN RN René Latham RN RN rv Corrections: (The following items were deleted from the chart) 19:31 19:06 12/24/2018 19:06 Discharged to Home. Impression: Abdominal and pelvic pain; Acute rv upper respiratory infection, unspecified. Condition is Stable. Forms are Medication Reconciliation Form, Thank You Letter, Antibiotic Education, Prescription Opioid Use. Follow up: Anthony Khalil; When: 5 - 6 days; Reason: Recheck today's complaints, Continuance of care, Re-evaluation by your physician. Problem is new. Symptoms have improved. jr8
--- NOTE | 2018-12-24 19:10 | ER ---
Nurse's Notes [facility] Name: Olivia Mosley Age: 28 yrs Sex: Male : 1990 Arrival Date: 12/24/2018 Time: 17:52 Bed 7 Private MD: Diagnosis: Abdominal and pelvic pain;Acute upper respiratory infection, unspecified Presentation: 12/24 17:52 Presenting complaint: Patient states: my throat started stinging since yesterday and R hj ear is hurting; reports abd pain; reports fever and cold sweats;. Transition of care: patient was not received from another setting of care. Onset of symptoms was December 24, 2018. Risk Assessment: Do you want to hurt yourself or someone else? Patient reports no desire to harm self or others. Initial Sepsis Screen: Does the patient meet any 2 criteria? No. Patient's initial sepsis screen is negative. Does the patient have a suspected source of infection? No. Patient's initial sepsis screen is negative. Care prior to arrival: None. 17:52 Method Of Arrival: Ambulatory 17:52 Acuity: ARACELIS 3 hj Historical: - Allergies: 17:54 No Known Allergies; hj - PMHx: 17:54 Hypertension; hj - PSHx: 17:54 None; hj - Immunization history:: Adult Immunizations up to date. - Ebola Screening: : No symptoms or risks identified at this time. Screenin:02 Abuse screen: Denies threats or abuse. Denies injuries from another. Nutritional rv screening: No deficits noted. Tuberculosis screening: No symptoms or risk factors identified. Fall Risk None identified. Assessment: 18:00 General: Appears in no apparent distress. uncomfortable, Behavior is calm, cooperative. rv Pain: Complains of pain in left lower quadrant Pain radiates to left upper quadrant Pain currently is 6 out of 10 on a pain scale. Quality of pain is described as sharp, Pain began last week. Neuro: Level of Consciousness is awake, alert, obeys commands, Oriented to person, place, time, situation. Cardiovascular: Patient's skin is warm and dry. Respiratory: Airway is patent. GI: Reports lower abdominal pain, nausea. : No signs and/or symptoms were reported regarding the genitourinary system. EENT: No signs and/or symptoms were reported regarding the EENT system. Derm: Skin is intact. Musculoskeletal: No signs and/or symptoms reported regarding the musculoskeletal system. 19:27 Reassessment: Patient and/or family updated on plan of care and expected duration. Pain rv level reassessed. Patient is alert, oriented x 3, equal unlabored respirations, skin warm/dry/pink. Discharge instruction given to patient, verbalized the understanding of instruction. Pt left ED ambulatory tolerating well. Vital Signs: 17:54 BP 137 / 79; Pulse 94; Resp 18; Temp 98.7(O); Pulse Ox 100% on R/A; Weight 81.65 kg; hj Height 5 ft. 6 in. (167.64 cm); Pain 6/10; 19:19 BP 128 / 67; Pulse 80; Resp 18; Temp 98; Pulse Ox 100% ; rv 17:54 Body Mass Index 29.05 (81.65 kg, 167.64 cm) hj ED Course: 17:52 Patient arrived in ED. rg4 17:54 Triage completed. hj 17:54 Arm band placed on right wrist. hj 17:57 Yoav Betancur, JIMMY is Primary Nurse. ae4 17:58 Mehrdad Dennison PA is PHCP. jr8 17:58 Luke Watson MD is Attending Physician. jr8 18:02 Patient has correct armband on for positive identification. Placed in gown. Bed in low rv position. Call light in reach. Side rails up X 1. Adult w/ patient. Pulse ox on. NIBP on. 18:15 Radiology exam delayed due to IV insertion attempt and/or patient not having vm2 appropriate IV at this time. 18:44 CT Abd/Pelvis - IV Contrast Only In Process Unspecified. EDMS 19:06 Anthony Khalil MD is Referral Physician. jr8 19:20 IV discontinued, intact, bleeding controlled, No redness/swelling at site. Pressure rv dressing applied. 19:28 No provider procedures requiring assistance completed. rv Administered Medications: 18:25 Drug: fentaNYL (PF) 50 mcg Route: IVP; Site: right antecubital; rv 19:19 Follow up: Response: No adverse reaction; Pain is decreased rv 18:25 Drug: Zofran 4 mg Route: IVP; Site: right antecubital; rv 19:19 Follow up: Response: No adverse reaction rv Outcome: 19:06 Discharge ordered by MD. hurt 19:29 Discharged to home ambulatory, with family. rv 19:29 Condition: improved 19:29 Discharge instructions given to patient, Instructed on discharge instructions, follow up and referral plans. medication usage, Demonstrated understanding of instructions, follow-up care, medications, Prescriptions given X 2. 19:31 Patient left the ED. rv Signatures: Dispatcher [employer] EDMS Mehrdad Dennison PA PA jr8 Curry Damon, RN RN Ana Pryor 4 Stefani Bryan 2 René Latham RN RN rv Yoav Betancur, JIMMY RN ae4 Corrections: (The following items were deleted from the chart) 17:56 17:54 Pulse 94bpm; Resp 18bpm; Pulse Ox 100% RA; Temp 98.7F Oral; 81.65 kg; Height 5 hj ft. 6 in.; BMI: 29.0; Pain 6/10; hj 19:31 19:29 BP 128 / 67; Pulse 80bpm; Resp 18bpm; Pulse Ox 100%; Temp 98F; rv rv
== END 2018-12-24 19:31 | disposition home or self-care (01) ==
LOC: ER 17:49
DX: J06.9 Acute upper respiratory infection, unspecified (principal); R10.2 Pelvic and perineal pain; I10 Essential (primary) hypertension
CPT/HCPCS: 36415; 74177; 80048; 85025; 87070; 87081; 96374; 96375; 99284; J2405; J3010; Q9967

== ENCOUNTER 2019-02-04 15:42 | Emergency (ER) | payer SELFPAY ==
--- OUTSIDE RECORDS SUMMARY | 2019-02-04 15:45 | XMS REPORT ---
:1990 [facility] Address [address] [place] [address] Care Team Providers Name Role Phone Unavailable Unavailable Unavailable Problems This patient has no known problems. Allergies, Adverse Reactions, Alerts This patient has no known allergies or adverse reactions. Medications This patient has no known medications. Encounters Start End Encounter Admission Attending Care Care Encounter Date/Time Date/Time Type Type Clinicians Facility Department ID 2017-05-15 2017-05-15 Outpatient [facility] [id number] 08:24:01 08:24:01 2017-02-23 2017-02-23 Outpatient [facility] [id number] 00:00:00 00:00:00
[2019-02-04] MEDS ORDERED: DICYCLOMINE HCL 10 MG CAP ONE (16:46)
[2019-02-04] MEDS ORDERED: FAMOTIDINE 20 MG/2 ML VIAL IV ONE (16:46)
[2019-02-04] MEDS ORDERED: NA CHLORIDE 0.9% 1,000 ML ONE (16:46)
[2019-02-04] MEDS ORDERED: ONDANSETRON 4 MG/2 ML VIAL ONE (16:46)
[2019-02-04 16:47] LABS: Absolute Lymphocytes (CBC) 1.8 K/uL (0.7-4.9); Basophils % 0.4 % (0-1.3); Lymphocytes % 15.9 % (15.3-44.8); RBC Red Blood Cell Count 4.78 M/uL (4.33-5.43)
[2019-02-04 17:02] LABS: ALT/SGPT 33 U/L (12-78); AST/SGOT 15 U/L (15-37); Albumin 3.4 g/dL (3.4-5.0); Alkaline Phosphatase 123 U/L (45-117); BUN Blood Urea Nitrogen 11 mg/dL (7-18); Bicarbonate 28 mmol/L (21-32); Bilirubin Direct < 0.1 mg/dL (0-0.2); Bilirubin Total 0.3 mg/dL (0.2-1.0); Glucose Level 91 mg/dL (74-106); Lipase 137 U/L (73-393); Potassium 3.4 mmol/L (3.5-5.1); Protein, Total 7.6 g/dL (6.4-8.2); Sodium Level 142 mmol/L (136-145)
--- NOTE | 2019-02-04 17:49 | RAD REPORT ---
EXAM DESCRIPTION: RAD - Abdomen Acute Series - 02/04/2019 5:36 pm CLINICAL HISTORY: Abdominal pain COMPARISON: None. FINDINGS: Lungs are clear. Heart size and pulmonary vasculature are normal. No pleural effusion, pne umothorax or other acute cardiopulmonary process seen. Bowel gas pattern is nonspecific. No bowel obstruction, free air or other acute findings. No suspicio us calcifications. No other suspicious for significant findings. IMPRESSION: Negative acute abdomen series.
[2019-02-04 18:03] LABS: Urine Amorphous Sediment 3+ /HPF (NONE SEEN); Urine Bacteria <20 /HPF (NONE SEEN); Urine Culture Reflex Order NOT NEEDED
[2019-02-04 18:03] LABS: Urine Blood NEGATIVE (NEG); Urine Glucose NEGATIVE (NEG); Urine Protein NEGATIVE (NEG)
--- NOTE | 2019-02-04 18:19 | ER ---
Nurse's Notes [facility] Name: Olivia Mosley Age: 28 yrs Sex: Male : 1990 Arrival Date: 02/04/2019 Time: 15:43 Bed 19 Private MD: Diagnosis: Nausea;Diarrhea, unspecified;Acute pharyngitis Presentation: 02/04 15:50 Presenting complaint: Patient states: Vesicular appearing ulcers inside mouth for one aj day and diarrhea for 5 days. Transition of care: patient was not received from another setting of care. Onset of symptoms was February 09, 2019. Risk Assessment: Do you want to hurt yourself or someone else? Patient reports no desire to harm self or others. Initial Sepsis Screen: Does the patient meet any 2 criteria? No. Patient's initial sepsis screen is negative. Does the patient have a suspected source of infection? No. Patient's initial sepsis screen is negative. Care prior to arrival: None. 15:50 Method Of Arrival: Ambulatory aj 15:50 Acuity: ARACELIS 4 aj Triage Assessment: 15:51 General: Appears in no apparent distress. comfortable, Behavior is calm, cooperative, aj appropriate for age. Pain: Complains of pain in mouth. Neuro: Level of Consciousness is awake, alert, obeys commands, Oriented to person, place, time, situation, Appropriate for age. Respiratory: Airway is patent Respiratory effort is even, unlabored, Respiratory pattern is regular, symmetrical. GI: Abdomen is flat, non-distended, Reports diarrhea. Derm: Skin is intact, is healthy with good turgor, Skin is pink, warm \T\ dry. normal. Historical: - Allergies: 15:51 No Known Allergies; aj - Home Meds: 15:51 None [Active]; aj - PMHx: 15:51 Hypertension; aj - PSHx: 15:51 None; aj - Immunization history:: Adult Immunizations up to date. - Social history:: Smoking status: Patient/guardian denies using tobacco. - Ebola Screening: : Patient negative for fever greater than or equal to 101.5 degrees Fahrenheit, and additional compatible Ebola Virus Disease symptoms Patient denies exposure to infectious person Patient denies travel to an Ebola-affected area in the 21 days before illness onset No symptoms or risks identified at this time. Screenin:19 Abuse screen: Denies threats or abuse. Nutritional screening: No deficits noted. ae4 Tuberculosis screening: No symptoms or risk factors identified. Fall Risk None identified. Assessment: 16:00 General: Appears uncomfortable, Behavior is cooperative, anxious. Pain: Complains of ae4 pain in left buccal mucosa. Neuro: Level of Consciousness is awake, alert, obeys commands, Oriented to person, place, time, situation, Appropriate for age. Cardiovascular: Patient's skin is warm and dry. Respiratory: Airway is patent Respiratory effort is even, unlabored, Respiratory pattern is regular, symmetrical, Breath sounds are clear bilaterally. GI: Reports diarrhea, nausea. GI: Reports. : No signs and/or symptoms were reported regarding the genitourinary system. EENT: Oral mucosa is dry. Swelling to left inner oral mucosa.. Derm: Skin is normal. Musculoskeletal: No signs and/or symptoms reported regarding the musculoskeletal system. 17:00 Reassessment: Patient appears in no apparent distress at this time. Patient and/or ae4 family updated on plan of care and expected duration. Pain level reassessed. Patient states feeling better. 18:11 Reassessment: Provider at bedside discussing plan of care. ae4 Vital Signs: 15:51 BP 138 / 88; Pulse 101; Resp 19; Temp 98.6; Pulse Ox 100% on R/A; Weight 79.38 kg; aj Height 5 ft. 6 in. (167.64 cm); 16:51 BP 124 / 80; Pulse 82; Resp 18; Temp 98.5(TE); Pulse Ox 100% on R/A; mh5 18:12 BP 138 / 86; Pulse 77; Resp 16; Pulse Ox 99% on R/A; ae4 15:51 Body Mass Index 28.25 (79.38 kg, 167.64 cm) ED Course: 15:43 Patient arrived in ED. as 15:51 Triage completed. aj 15:51 Arm band placed on right wrist. Patient placed in an exam room. aj 15:53 Luke Nelson PA is PHCP. cp 15:54 Luke Watson MD is Attending Physician. cp 15:56 Yoav Betancur, JIMMY is Primary Nurse. ae4 16:00 Bed in low position. Call light in reach. Side rails up X 1. Adult w/ patient. Pulse ox ae4 on. NIBP on. Warm blanket given. 16:42 Initial lab(s) drawn, by oh, sent to lab. Urine collected: clean catch specimen, 5 cloudy, Strep swab sent to lab. Inserted saline lock: 22 gauge in right antecubital area, using aseptic technique. Blood collected. 16:42 Urine Microscopic Only Sent. 5 16:42 Basic Metabolic Panel Sent. 5 16:42 CBC with Diff Sent. 5 16:43 Creatinine for Radiology Sent. 5 16:43 Hepatic Function Sent. 5 16:43 Lipase Sent. 5 16:43 Strep Sent. 5 17:38 XRAY Abdomen Acute Series In Process Unspecified. EDMS 18:17 Anthony Khalil MD is Referral Physician. cp 18:36 No provider procedures requiring assistance completed. IV discontinued, intact, ae4 bleeding controlled, No redness/swelling at site. Pressure dressing applied. Administered Medications: 16:00 Drug: Zofran 4 mg Route: IVP; Site: right antecubital; ae4 18:37 Follow up: Response: Nausea is decreased ae4 16:35 Drug: NS 0.9% 1000 ml Route: IV; Rate: 1 bolus; Site: right antecubital; ae4 18:37 Follow up: IV Status: Completed infusion ae4 16:41 Drug: Bentyl 20 mg Route: PO; ae4 18:37 Follow up: Response: Pain is decreased ae4 16:41 Drug: Pepcid 20 mg Route: IVP; Site: right antecubital; ae4 18:36 Follow up: Response: No adverse reaction ae4 18:11 Drug: Potassium Effervescent Tablet 25 mEq Route: PO; ae4 18:36 Follow up: Response: Medication administered at discharge. ae4 Outcome: 18:18 Discharge ordered by MD. cp 18:36 Discharged to home ambulatory, with family. ae4 18:36 Condition: stable 18:36 Discharge instructions given to patient, Instructed on discharge instructions, follow up and referral plans. Demonstrated understanding of instructions, follow-up care, Prescriptions given X 2. 18:37 Patient left the ED. ae4 Signatures: Dispatcher [employer] EDShahana Antony RN RN aj Martinez, Amelia as Page, Corey, PA PA cp Martinez, Maria [facility] Yoav Betancur RN RN ae4
--- NOTE | 2019-02-04 18:20 | EDPHYS ---
Physician Documentation [facility] Name: Olivia Mosley Age: 28 yrs Sex: Male : 1990 Arrival Date: 02/04/2019 Time: 15:43 Bed 19 Private MD: ED Physician Luke Watson HPI: 02/04 16:10 This 28 yrs old Black Male presents to ER via Ambulatory with complaints of Mouth cp Swelling, Diarrhea. 16:10 The patient presents with ulceration. The problem is located in the tip of tongue. cp 16:10 Onset: The symptoms/episode began/occurred yesterday. cp 16:12 The patient presents with abdominal pain in the lower abdomen. cp 16:12 Onset: The symptoms/episode began/occurred 5 day(s) ago. Associated signs and symptoms: cp Pertinent positives: anorexia, nausea, vomiting, diarrhea times 5 days, Pertinent negatives: fever, inability to eat. The patient has experienced similar episodes in the past, multiple times, today's symptoms are similar, to when the patient was apparently diagnosed with gastroenteritis. The patient has been recently seen at the [facility], last month, for similar complaints labs were performed, CT scan was performed. Historical: - Allergies: 15:51 No Known Allergies; aj - Home Meds: 15:51 None [Active]; aj - PMHx: 15:51 Hypertension; aj - PSHx: 15:51 None; aj - Immunization history:: Adult Immunizations up to date. - Social history:: Smoking status: Patient/guardian denies using tobacco. - Ebola Screening: : Patient negative for fever greater than or equal to 101.5 degrees Fahrenheit, and additional compatible Ebola Virus Disease symptoms Patient denies exposure to infectious person Patient denies travel to an Ebola-affected area in the 21 days before illness onset No symptoms or risks identified at this time. ROS: 16:20 Constitutional: Negative for body aches, chills, fever, poor PO intake, weight loss. cp 16:20 Eyes: Negative for injury, pain, redness, and discharge. cp 16:20 ENT: Negative for drainage from ear(s), ear pain, sore throat, difficulty swallowing, difficulty handling secretions. 16:20 Cardiovascular: Negative for chest pain. 16:20 Respiratory: Negative for cough, shortness of breath, wheezing. 16:20 Abdomen/GI: Positive for nausea, diarrhea, Negative for constipation, black/tarry stool, rectal bleeding, active vomiting. 16:20 Back: Negative for pain at rest, pain with movement. 16:20 : Negative for urinary symptoms, flank pain, testicular pain 16:20 Skin: Negative for cellulitis, rash. 16:20 Neuro: Negative for altered mental status, headache, weakness. 16:20 All other systems are negative. Exam: 16:25 Constitutional: The patient appears in no acute distress, alert, awake, non-toxic, well cp developed, well nourished. 16:25 Head/Face: Normocephalic, atraumatic. cp 16:25 Eyes: Periorbital structures: appear normal, Conjunctiva: normal, no exudate, no injection, Sclera: no appreciated abnormality, Lids and lashes: appear normal, bilaterally. 16:25 ENT: External ear(s): are unremarkable, Ear canal(s): are normal, clear, TM's: are normal, Nose: is normal, Mouth: Lips: moist, Oral mucosa: pink and intact, moist, Posterior pharynx: is normal, airway is patent, no erythema, no exudate. 16:25 Neck: ROM/movement: is normal, is supple, without pain, no range of motions limitations, no meningismus, no nuchal rigidity. 16:25 Chest/axilla: Inspection: normal, Palpation: is normal, no crepitus, no tenderness. 16:25 Cardiovascular: Rate: tachycardic, Rhythm: regular. 16:25 Respiratory: the patient does not display signs of respiratory distress, Respirations: normal, no use of accessory muscles, no retractions, no splinting, no tachypnea, labored breathing, is not present, Breath sounds: are clear throughout, no decreased breath sounds, no stridor, no wheezing. 16:25 Abdomen/GI: Inspection: abdomen appears normal, Bowel sounds: active, all quadrants, Palpation: soft, in all quadrants, mild abdominal tenderness, in the right lower quadrant and left lower quadrant, rebound tenderness, is not appreciated, involuntary guarding, is not appreciated. 16:25 Back: pain, is absent, ROM is normal. 16:25 Skin: no rash present. Vital Signs: 15:51 BP 138 / 88; Pulse 101; Resp 19; Temp 98.6; Pulse Ox 100% on R/A; Weight 79.38 kg; aj Height 5 ft. 6 in. (167.64 cm); 16:51 BP 124 / 80; Pulse 82; Resp 18; Temp 98.5(TE); Pulse Ox 100% on R/A; mh5 18:12 BP 138 / 86; Pulse 77; Resp 16; Pulse Ox 99% on R/A; ae4 15:51 Body Mass Index 28.25 (79.38 kg, 167.64 cm) aj MDM: 15:58 Patient medically screened. cp 16:30 Differential diagnosis: appendicitis, bowel obstruction, gastritis, pancreatitis, cp Peptic Ulcer Disease, Perf. Duodenal Ulcer, Perf. Gastric Ulcer, colitis. 18:17 Data reviewed: vital signs, nurses notes, old medical records, lab test result(s), cp radiologic studies, plain films, and as a result, I will discharge patient. 18:17 Counseling: I had a detailed discussion with the patient and/or guardian regarding: the cp historical points, exam findings, and any diagnostic results supporting the discharge/admit diagnosis, lab results, radiology results, the need for outpatient follow up, for definitive care, a toby maker, to return to the emergency department if symptoms worsen or persist or if there are any questions or concerns that arise at home. ED course: VSS. Patient with multiple abdominal CTs over past 2 months after being seen in this ED. Labs reviewed today and similar to past results. Xrays of abdomen negative for obstruction of perforation. Will discharge to home for continued monitoring and recommend f/u with GI. 02/04 16:09 Order name: Strep; Complete Time: 17:03 cp 02/04 16:09 Order name: Basic Metabolic Panel; Complete Time: 17:11 cp 02/04 16:09 Order name: CBC with Diff; Complete Time: 17:03 cp 02/04 17:02 Interpretation: Normal except: WBC 11.1; HGB 13.1. cp 02/04 16:09 Order name: Creatinine for Radiology; Complete Time: 17:03 cp 02/04 16:09 Order name: Hepatic Function; Complete Time: 17:11 cp 02/04 16:09 Order name: Lipase; Complete Time: 17:11 cp 02/04 16:09 Order name: Urine Microscopic Only cp 02/04 17:10 Order name: Throat Culture EDFL 02/04 17:14 Order name: XRAY Abdomen Acute Series; Complete Time: 17:58 cp 02/04 17:48 Order name: Urine Dipstick--Ancillary (enter results) bd 02/04 16:09 Order name: IV Saline Lock; Complete Time: 16:43 cp 02/04 16:09 Order name: Labs collected and sent; Complete Time: 16:43 cp 02/04 16:09 Order name: Urine Dipstick-Ancillary (obtain specimen); Complete Time: 16:42 cp 02/04 17:57 Order name: PO challenge; Complete Time: 18:11 cp Administered Medications: 16:00 Drug: Zofran 4 mg Route: IVP; Site: right antecubital; ae4 18:37 Follow up: Response: Nausea is decreased ae4 16:35 Drug: NS 0.9% 1000 ml Route: IV; Rate: 1 bolus; Site: right antecubital; ae4 18:37 Follow up: IV Status: Completed infusion ae4 16:41 Drug: Bentyl 20 mg Route: PO; ae4 18:37 Follow up: Response: Pain is decreased ae4 16:41 Drug: Pepcid 20 mg Route: IVP; Site: right antecubital; ae4 18:36 Follow up: Response: No adverse reaction ae4 18:11 Drug: Potassium Effervescent Tablet 25 mEq Route: PO; ae4 18:36 Follow up: Response: Medication administered at discharge. ae4 Disposition: 02/04/19 18:18 Discharged to Home. Impression: Nausea, Diarrhea, unspecified, Acute pharyngitis. - Condition is Stable. - Discharge Instructions: Food Choices to Help Relieve Diarrhea, Adult, Diarrhea, Adult, Nausea, Adult, Pharyngitis. - Prescriptions for Bentyl 20 mg Oral Tablet - take 2 tablets by ORAL route every 6 hours As needed; 30 tablet. Zofran 4 mg Oral Tablet - take 1 tablet by ORAL route every 12 hours As needed; 20 tablet. - Medication Reconciliation Form, Thank You Letter, Antibiotic Education, Prescription Opioid Use, Work release form form. - Follow up: Anthony Khalil MD; When: 1 - 2 days; Reason: diarrhea. - Problem is an ongoing problem. - Symptoms have improved. Addendum: 02/07/2019 07:08 Co-signature as Attending Physician, Luke Watson MD I agree with the assessment and c johnson plan of care. Signatures: Dispatcher [employer] EDFL Shahana Kennedy, RN RN Luke Velarde MD MD cha Page, Corey, ILYA PA cp Yoav Betancur, RN RN ae4 Corrections: (The following items were deleted from the chart) 02/04 17:31 17:13 Abdomen Pelvis W Con+CT.RAD.BRZ ordered. [facility] 18:37 18:18 02/04/2019 18:18 Discharged to Home. Impression: Nausea; Diarrhea, unspecified; ae4 Acute pharyngitis. Condition is Stable. Forms are Medication Reconciliation Form, Thank You Letter, Antibiotic Education, Prescription Opioid Use. Follow up: Anthony Khalil; When: 1 - 2 days; Reason: diarrhea. Problem is an ongoing problem. Symptoms have improved. cp
[2019-02-04] MEDS ORDERED: POTASSIUM 25 MEQ EFFERV TAB ONE (18:25)
== END 2019-02-04 18:37 | disposition home or self-care (01) ==
LOC: ER 15:42
DX: R11.0 Nausea (principal); R19.7 Diarrhea, unspecified; J02.9 Acute pharyngitis, unspecified; I10 Essential (primary) hypertension
CPT/HCPCS: 36415; 74022; 80048; 80076; 81003; 81015; 83690; 85025; 87070; 87081; 96361; 96374; 96375; 99284; J2405; J7030

== ENCOUNTER 2019-03-02 09:37 | Emergency (ER) | payer SELFPAY ==
--- OUTSIDE RECORDS SUMMARY | 2019-03-02 09:40 | XMS REPORT ---
:1990 [facility] Address [address] [place] [address] Care Team Providers Name Role Phone Unavailable Unavailable Unavailable Problems This patient has no known problems. Allergies, Adverse Reactions, Alerts This patient has no known allergies or adverse reactions. Medications This patient has no known medications. Encounters Start End Encounter Admission Attending Care Care Encounter Date/Time Date/Time Type Type Clinicians Facility Department ID 2017-05-15 2017-05-15 Outpatient [facility] [id number] 08:24:01 08:24:01 2017-02-23 2017-02-23 Outpatient [facility] [id number] 00:00:00 00:00:00
[2019-03-02] MEDS ORDERED: DIAZEPAM 2 MG TABLET ONE (10:12)
[2019-03-02 11:03] LABS: Barbiturates NEGATIVE (NEGATIVE); Benzodiazepines NEGATIVE (NEGATIVE); Cocaine NEGATIVE (NEGATIVE); METHAMPHETAM NEGATIVE (NEGATIVE); Methadone NEGATIVE (NEGATIVE); Opiates NEGATIVE (NEGATIVE); Phencyclidine NEGATIVE (NEGATIVE); THC Cannibis POSITIVE (NEGATIVE)
--- NOTE | 2019-03-02 11:40 | RAD REPORT ---
EXAM DESCRIPTION: USExtremity Venous Uni Ltd03/02/2019 11:08 am CLINICAL HISTORY: left leg pain COMPARISON: None. FINDINGS: Left common femoral, superficial femoral, popliteal and posterior tibial veins are compre ssible and demonstrate augmentation. Doppler demonstrates good flow. IMPRESSION: No evidence of deep venous thrombosis involving the left lower extremity.
[2019-03-02 11:56] LABS: Urine Blood TRACE (NEG); Urine Glucose NEGATIVE (NEG); Urine Protein NEGATIVE (NEG); Urine Specific Gravity 1.025 (1.005-1.030); Urine pH 6.5 (5.0-7.0)
--- NOTE | 2019-03-02 11:56 | ER ---
Nurse's Notes [facility] Name: Olivia Mosley Age: 28 yrs Sex: Male : 1990 Arrival Date: 03/02/2019 Time: 09:39 Bed 14 Private MD: Diagnosis: Pain in left thigh;Pain in left shoulder Presentation: 03/02 09:50 Presenting complaint: Patient states: L thigh pain x 1 week, denies injury/ redness ss and/or swelling. Also c/o L shoulder pain with ROM x "months". Patient has old injury that he believes may be flaring up. Transition of care: patient was not received from another setting of care. Onset of symptoms is unknown. Risk Assessment: Do you want to hurt yourself or someone else? Patient reports no desire to harm self or others. Initial Sepsis Screen: Does the patient meet any 2 criteria? No. Patient's initial sepsis screen is negative. Does the patient have a suspected source of infection? No. Patient's initial sepsis screen is negative. Care prior to arrival: None. 09:50 Method Of Arrival: Ambulatory ss 09:50 Acuity: ARACELIS 4 ss Historical: - Allergies: 09:52 No Known Allergies; ss - Home Meds: 09:52 None [Active]; ss - PMHx: 09:52 Hypertension; ss - PSHx: 09:52 None; ss - Immunization history:: Adult Immunizations unknown. - Social history:: Smoking status: Patient uses tobacco products, smokes one pack cigarettes per day. - Ebola Screening: : Patient denies exposure to infectious person Patient denies travel to an Ebola-affected area in the 21 days before illness onset. Screenin:33 Abuse screen: Denies threats or abuse. Denies injuries from another. Nutritional ph screening: No deficits noted. Tuberculosis screening: No symptoms or risk factors identified. Fall Risk None identified. Assessment: 10:15 General: Appears in no apparent distress. uncomfortable, well groomed, Behavior is ph calm, cooperative, appropriate for age, Denies fever. Pain: Complains of pain in medial aspect of left thigh and anterior aspect of left shoulder. Neuro: Level of Consciousness is awake, alert, obeys commands, Oriented to person, place, time, situation. Cardiovascular: Capillary refill < 3 seconds in bilateral fingers Patient's skin is warm and dry. Respiratory: Airway is patent Respiratory effort is even, unlabored. Derm: Skin is intact, is healthy with good turgor, Skin is pink, warm \\T\\ dry. Musculoskeletal: Circulation, motion, and sensation intact. Range of motion: intact in all extremities, Swelling absent. Vital Signs: 09:52 BP 142 / 95; Pulse 90; Resp 19; Temp 98.0(O); Pulse Ox 100% on R/A; Height 5 ft. 6 in. ss (167.64 cm); Pain 8/10; 10:54 BP 132 / 101; Pulse 87; Resp 18; Pulse Ox 100% on R/A; ph 12:20 BP 127 / 87; Pulse 84; Resp 18; Temp 97.8; Pulse Ox 99% on R/A; Pain 4/10; ph ED Course: 09:39 Patient arrived in ED. as 09:39 Shann[facility] Farias [facility]C [facility]. snw 09:39 Ab June MD is Attending Physician. snw 09:51 Triage completed. ss 09:52 Arm band placed on right wrist. ss 09:55 Caron Diaz, JIMMY is Primary Nurse. ph 10:33 Patient has correct armband on for positive identification. Bed in low position. Call ph light in reach. Side rails up X2. Pulse ox on. NIBP on. Door closed. Noise minimized. Warm blanket given. Head of bed elevated. 10:34 Urine collected: urinal, clear. dh3 10:55 Radiology exam delayed due to PT IS GETTING US EXAM. jb2 11:07 US Extremity Venous Unilateral Ltd In Process Unspecified. EDMS 11:08 Ultrasound completed. Patient tolerated well. sg3 11:16 Shoulder Left (2 View) XRAY In Process Unspecified. EDMS 12:21 No provider procedures requiring assistance completed. Patient did not have IV access ph during this emergency room visit. Administered Medications: 10:16 Drug: Valium 2 mg Route: PO; ph 12:20 Follow up: Response: No adverse reaction; Pain is decreased ph Outcome: 11:55 Discharge ordered by . snw 12:21 Discharged to home ambulatory, with significant other. ph 12:21 Condition: good 12:21 Discharge instructions given to patient, Instructed on discharge instructions, follow up and referral plans. medication usage, Demonstrated understanding of instructions, follow-up care, medications, Prescriptions given X 1. 12:21 Patient left the ED. ph Signatures: Dispatcher [employer] EDMS Shannen Farias, ENMANUEL-C TRAIN GATEMAN-Lawrence Yanez Amelia as Smirch, Shelby, JIMMY MARQUEZ Caron Diaz RN RN Jose, [facility] Christy Williamson [facility]
--- NOTE | 2019-03-02 11:56 | RAD REPORT ---
EXAM DESCRIPTION: RAD - Shoulder Left 2 View - 03/02/2019 11:16 am CLINICAL HISTORY: Left shoulder pain FINDINGS: No acute fracture or dislocation seen. Calcification adjacent to the superior aspect of the humeral head may indicate calcific tendinitis or be the sequela of old trauma Cortical irregularity involving the lateral aspect of the humeral neck may be related to old trauma
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
== END 2019-03-02 12:21 | disposition home or self-care (01) ==
LOC: ER 09:37
DX: M79.652 Pain in left thigh (principal); M25.512 Pain in left shoulder; I10 Essential (primary) hypertension; F17.210 Nicotine dependence, cigarettes, uncomplicated
CPT/HCPCS: 80307; 81003; 93971; 99284

== ENCOUNTER 2019-03-30 10:28 | Emergency (ER) | payer SELFPAY ==
--- OUTSIDE RECORDS SUMMARY | 2019-03-30 10:30 | XMS REPORT ---
:1990 [facility] Address [address] [place] [address] Care Team Providers Name Role Phone Unavailable Unavailable Unavailable Problems This patient has no known problems. Allergies, Adverse Reactions, Alerts This patient has no known allergies or adverse reactions. Medications This patient has no known medications. Encounters Start End Encounter Admission Attending Care Care Encounter Date/Time Date/Time Type Type Clinicians Facility Department ID 2017-05-15 2017-05-15 Outpatient [facility] [id number] 08:24:01 08:24:01 2017-02-23 2017-02-23 Outpatient [facility] [id number] 00:00:00 00:00:00
[2019-03-30] MEDS ORDERED: ONDANSETRON 4 MG (ODT) TAB ONE (10:50)
[2019-03-30] MEDS ORDERED: NA CHLORIDE 0.9% 0 ML ONE (12:58)
[2019-03-30 13:01] LABS: Absolute Lymphocytes (CBC) 2.3 K/uL (0.7-4.9); Basophils % 0.4 % (0-1.3); Hematocrit 38.9 % (39.6-49.0); Lymphocytes % 21.1 % (15.3-44.8); MPV 8.8 fL (7.6-11.3); RBC Red Blood Cell Count 4.67 M/uL (4.33-5.43)
[2019-03-30] MEDS ORDERED: NA CHLORIDE 0.9% 1,000 ML ONE (13:05)
[2019-03-30 13:21] LABS: ALT/SGPT 33 U/L (12-78); AST/SGOT 15 U/L (15-37); Albumin 3.6 g/dL (3.4-5.0); Alkaline Phosphatase 133 U/L (45-117); BUN Blood Urea Nitrogen 11 mg/dL (7-18); Bicarbonate 27 mmol/L (21-32); Bilirubin Direct < 0.1 mg/dL (0-0.2); Bilirubin Total 0.3 mg/dL (0.2-1.0); Glucose Level 86 mg/dL (74-106); Lipase 117 U/L (73-393); Potassium 3.7 mmol/L (3.5-5.1); Protein, Total 7.7 g/dL (6.4-8.2); Sodium Level 143 mmol/L (136-145)
--- NOTE | 2019-03-30 14:01 | RAD REPORT ---
EXAM DESCRIPTION: CTAbdomen Pelvis W Contrast - 03/30/2019 1:54 pm CLINICAL HISTORY: Abdominal pain. right sided abdominal pain COMPARISON: Abdomen Pelvis W Contrast dated 12/24/2018; Abdomen Pelvis W Contrast dated 12/14/2018 TECHNIQUE: Biphasic CT imaging of the abdomen and pelvis was performed with 100 ml non-ionic IV cont rast. All CT scans are performed using dose optimization technique as appropriate and may include automated exposure control or mA/KV adjustment according to patient size. FINDINGS: The lung bases are clear. The liver, spleen, pancreas, adrenal glands and kidneys are within normal limits. No bowel obstruction, free air, free fluid or abscess. The appendix is normal. No evidence of signi ficant lymphadenopathy. No suspicious bony findings. IMPRESSION: No acute intra-abdominal or pelvic finding.
--- NOTE | 2019-03-30 14:19 | EDPHYS ---
Physician Documentation [facility] Name: Olivia Mosley Age: 28 yrs Sex: Male : 1990 Arrival Date: 03/30/2019 Time: 10:29 Bed 20 Private MD: ED Physician Brian Madrid HPI: 03/30 12:28 This 28 yrs old Black Male presents to ER via Ambulatory with complaints of Abdominal jmm Pain, Shoulder Pain, Vomiting. 12:28 The patient presents with abdominal pain. Onset: The symptoms/episode began/occurred jmm today. The symptoms do not radiate. The patient has not experienced similar symptoms in the past. This is a 28 tyear old male with a history of htn that presents to the ED with complaints of of cough, congestion beginning yesterday with nausea and diarrhea beginning today. Patient states multiple sick contacts at work and at home. . Historical: - Allergies: 10:53 No Known Allergies; hb - Home Meds: 10:53 None [Active]; hb - PMHx: 10:53 Hypertension; hb - PSHx: 10:53 None; hb - Immunization history:: Adult Immunizations up to date. - Social history:: Smoking status: Patient/guardian denies using tobacco. - Ebola Screening: : No symptoms or risks identified at this time. ROS: 12:28 Cardiovascular: Negative for chest pain, palpitations, and edema. jmm 12:28 Constitutional: Positive for body aches, malaise. 12:28 ENT: Positive for sinus congestion. 12:28 Respiratory: Positive for cough. 12:28 Abdomen/GI: Positive for abdominal pain, diarrhea. 12:28 All other systems are negative. Exam: 12:28 Constitutional: This is a well developed, well nourished patient who is awake, alert, jmm and in no acute distress. Head/Face: atraumatic. Eyes: EOMI, no conjunctival erythema appreciated ENT: Moist Mucus Membranes Neck: Trachea midline, Supple Chest/axilla: Normal chest wall appearance and motion. Cardiovascular: Regular rate and rhythm. No edema appreciated Respiratory: Normal respirations, no respiratory distress appreciated 12:28 Abdomen/GI: Inspection: abdomen appears normal, Bowel sounds: normal, Palpation: mild abdominal tenderness, in the right lower quadrant. 12:28 Back: ROM is normal, CVA tenderness, is absent. 12:28 Musculoskeletal/extremity: ROM: intact in all extremities. 12:28 Skin: Appearance: Color: normal in color. 12:28 Neuro: Orientation: is normal, Mentation: is normal, Memory: is normal. 12:28 Psych: Behavior/mood is pleasant, cooperative. Vital Signs: 10:53 BP 148 / 88; Pulse 86; Resp 18; Temp 98.7; Pulse Ox 100% on R/A; Weight 99.79 kg; hb Height 5 ft. 6 in. (167.64 cm); Pain 3/10; 13:08 BP 130 / 82; Pulse 75; Resp 18; Pulse Ox 100% on R/A; em 14:30 BP 134 / 84; Pulse 81; Resp 16; Pulse Ox 98% on R/A; em 10:53 Body Mass Index 35.51 (99.79 kg, 167.64 cm) hb MDM: 12:28 Patient medically screened. patsy 14:17 Data reviewed: vital signs, nurses notes. Counseling: I had a detailed discussion with patsy the patient and/or guardian regarding: the historical points, exam findings, and any diagnostic results supporting the discharge/admit diagnosis, lab results, radiology results, the need for outpatient follow up, to return to the emergency department if symptoms worsen or persist or if there are any questions or concerns that arise at home. 03/30 10:49 Order name: Flu 03/30 10:49 Order name: Strep 03/30 11:23 Order name: Group A Streptococcus Rapid Sc; Complete Time: 12:28 [facility] 03/30 11:34 Order name: Influenza Screen (A ; Complete Time: 12:28 [facility] 03/30 12:33 Order name: Basic Metabolic Panel [facility] 03/30 12:33 Order name: CBC with Diff [facility] 03/30 12:33 Order name: Creatinine for Radiology [facility] 03/30 12:33 Order name: Hepatic Function [facility] 03/30 12:33 Order name: Lipase [facility] 03/30 13:04 Order name: CBC with Automated Diff; Complete Time: 13:34 [facility] 03/30 13:21 Order name: Creatinine (Radiology Only); Complete Time: 13:34 [facility] 03/30 13:22 Order name: Basic Metabolic Panel; Complete Time: 13:34 [facility] 03/30 13:22 Order name: Liver (Hepatic) Function; Complete Time: 13:34 [facility] 03/30 13:22 Order name: Lipase; Complete Time: 13:34 [facility] 03/30 12:33 Order name: IV Saline Lock; Complete Time: 13:09 [facility] 03/30 12:33 Order name: Labs collected and sent; Complete Time: 13:09 [facility] 03/30 12:33 Order name: CT Abd/Pelvis - IV Contrast Only [facility] 03/30 14:03 Order name: CT; Complete Time: 14:16 EDAL Administered Medications: 10:52 Drug: Zofran 4 mg Route: PO; hb 11:45 Follow up: Response: No adverse reaction; Nausea is decreased hb 13:07 Drug: NS 0.9% 1000 ml Route: IV; Rate: 1 bolus; Site: right antecubital; em 14:42 Follow up: IV Status: Completed infusion; IV Intake: 1000ml em Disposition: 03/31 09:04 Co-signature as Attending Physician, Brian Madrid MD I agree with the assessment and kdr plan of care. Disposition: 03/30/19 14:17 Discharged to Home. Impression: Diarrhea, unspecified, Acute upper respiratory infection, unspecified. - Condition is Stable. - Discharge Instructions: Diarrhea, Adult, Upper Respiratory Infection, Adult. - Prescriptions for Zofran ODT 4 mg Oral tablet,disintegrating - place 1 tablet by TRANSLINGUAL route every 4-6 hours; 20 tablet. - Medication Reconciliation Form, Thank You Letter, Antibiotic Education, Prescription Opioid Use, Work release form form. - Follow up: Private Physician; When: 2 - 3 days; Reason: Recheck today's complaints, Continuance of care, Re-evaluation by your physician. Signatures: Dispatcher [employer] [facility] Brian Madrid MD MD kdr Mickail, Joel, PA PA [facility] Gerardo Mckeon, FORENSIC INVESTIGATOR FORENSIC INVESTIGATOR em Maria Dolores To, RN RN hb Corrections: (The following items were deleted from the chart) 03/30 14:42 14:17 03/30/2019 14:17 Discharged to Home. Impression: Diarrhea, unspecified; Acute em upper respiratory infection, unspecified. Condition is Stable. Forms are Medication Reconciliation Form, Thank You Letter, Antibiotic Education, Prescription Opioid Use. Follow up: Private Physician; When: 2 - 3 days; Reason: Recheck today's complaints, Continuance of care, Re-evaluation by your physician. patsy
--- NOTE | 2019-03-30 14:19 | ER ---
Nurse's Notes [facility] Name: Olivia Mosley Age: 28 yrs Sex: Male : 1990 Arrival Date: 03/30/2019 Time: 10:29 Bed 20 Private MD: Diagnosis: Diarrhea, unspecified;Acute upper respiratory infection, unspecified Presentation: 03/30 10:52 Presenting complaint: N/V/D, body aches, nonproductive cough, and sinus congestion x 2 hb days. Transition of care: patient was not received from another setting of care. Onset of symptoms was March 29, 2019. Risk Assessment: Do you want to hurt yourself or someone else? Patient reports no desire to harm self or others. Initial Sepsis Screen: Does the patient meet any 2 criteria? No. Patient's initial sepsis screen is negative. Does the patient have a suspected source of infection? No. Patient's initial sepsis screen is negative. Care prior to arrival: None. 10:52 Method Of Arrival: Ambulatory 10:52 Acuity: ARACELIS 4 hb Triage Assessment: 11:00 General: Appears in no apparent distress. ill, Behavior is calm, cooperative. Pain: hb Pain currently is 3 out of 10 on a pain scale. EENT: Reports sore throat. Neuro: Level of Consciousness is awake, alert, obeys commands, Oriented to person, place, time, situation. Cardiovascular: Capillary refill < 3 seconds Patient's skin is warm and dry. Respiratory: Airway is patent Respiratory effort is even, unlabored, Respiratory pattern is regular, symmetrical, Breath sounds are clear bilaterally. GI: Reports nausea, vomiting. : No signs and/or symptoms were reported regarding the genitourinary system. Derm: Skin is intact, is healthy with good turgor. Musculoskeletal: No signs and/or symptoms reported regarding the musculoskeletal system. Historical: - Allergies: 10:53 No Known Allergies; hb - Home Meds: 10:53 None [Active]; hb - PMHx: 10:53 Hypertension; hb - PSHx: 10:53 None; hb - Immunization history:: Adult Immunizations up to date. - Social history:: Smoking status: Patient/guardian denies using tobacco. - Ebola Screening: : No symptoms or risks identified at this time. Screenin:05 Abuse screen: Denies threats or abuse. Denies injuries from another. Nutritional hb screening: No deficits noted. Tuberculosis screening: No symptoms or risk factors identified. Fall Risk None identified. Assessment: 11:05 General: see triage assessment. hb 12:20 Reassessment: Patient appears in no apparent distress at this time. Patient and/or hb family updated on plan of care and expected duration. Pain level reassessed. Patient is alert, oriented x 3, equal unlabored respirations, skin warm/dry/pink. 13:08 Reassessment: Patient appears in no apparent distress at this time. Patient and/or em family updated on plan of care and expected duration. Pain level reassessed. Patient is alert, oriented x 3, equal unlabored respirations, skin warm/dry/pink. 14:30 Reassessment: Patient appears in no apparent distress at this time. Patient and/or em family updated on plan of care and expected duration. Pain level reassessed. Patient is alert, oriented x 3, equal unlabored respirations, skin warm/dry/pink. Patient states feeling better. Patient states symptoms have improved. Vital Signs: 10:53 BP 148 / 88; Pulse 86; Resp 18; Temp 98.7; Pulse Ox 100% on R/A; Weight 99.79 kg; hb Height 5 ft. 6 in. (167.64 cm); Pain 3/10; 13:08 BP 130 / 82; Pulse 75; Resp 18; Pulse Ox 100% on R/A; em 14:30 BP 134 / 84; Pulse 81; Resp 16; Pulse Ox 98% on R/A; em 10:53 Body Mass Index 35.51 (99.79 kg, 167.64 cm) ED Course: 10:29 Patient arrived in ED. rg4 10:53 Triage completed. hb 10:53 Arm band placed on. hb 12:18 Maria Dolores To, JIMMY is Primary Nurse. hb 12:19 Rodney Morales PA is PHCP. jm 12:19 Brian Madrid MD is Attending Physician. jm 12:21 Patient has correct armband on for positive identification. Call light in reach. hb 12:59 Initial lab(s) drawn, by vt, sent to lab. Inserted saline lock: 22 gauge in right kj1 antecubital area, using aseptic technique. Accessed. 14:31 No provider procedures requiring assistance completed. IV discontinued, intact, em bleeding controlled, No redness/swelling at site. Pressure dressing applied. Administered Medications: 10:52 Drug: Zofran 4 mg Route: PO; hb 11:45 Follow up: Response: No adverse reaction; Nausea is decreased hb 13:07 Drug: NS 0.9% 1000 ml Route: IV; Rate: 1 bolus; Site: right antecubital; em 14:42 Follow up: IV Status: Completed infusion; IV Intake: 1000ml em Intake: 14:42 IV: 1000ml; Total: 1000ml. em Outcome: 14:17 Discharge ordered by . patsy 14:41 Discharged to home ambulatory, with family. em 14:41 Condition: good 14:41 Discharge instructions given to patient, Instructed on discharge instructions, follow up and referral plans. medication usage, Demonstrated understanding of instructions, follow-up care, medications, Prescriptions given X 1. 14:42 Patient left the ED. em Signatures: Rodney Morales PA PA jmm Munoz, Edgar, PERSONAL FINANCE INSTRUCTOR PERSONAL FINANCE INSTRUCTOR em Maria Dolores To, JIMMY RN Ana Simons rg4 Chel Gar kj1
[2019-03-30 15:52] VITALS: TEMP 98.7
[2019-03-30 15:55] VITALS: BP 134/84; O2SAT 98
== END 2019-03-30 14:42 | disposition home or self-care (01) ==
LOC: ER 10:28
DX: J06.9 Acute upper respiratory infection, unspecified (principal); R19.7 Diarrhea, unspecified; I10 Essential (primary) hypertension
CPT/HCPCS: 36415; 74177; 80048; 80076; 83690; 85025; 87070; 87081; 87804; 96360; 96361; 99284; J7030; Q9967

== ENCOUNTER 2020-01-15 14:09 | Emergency (ER) | payer SELFPAY ==
--- OUTSIDE RECORDS SUMMARY | 2020-01-15 18:58 | XMS REPORT | Continuity of Care Document ---
:1990 Author Organization [facility] t Address [address] [place] [address] Dr. Meraz [address] [place] [id number] Care Team Providers Name Role Phone Unavailable Unavailable Unavailable Problems This patient has no known problems. Allergies, Adverse Reactions, Alerts This patient has no known allergies or adverse reactions. Medications This patient has no known medications. Procedures This patient has no known procedures. Encounters Start End Encounter Admission Attending Care Care Encounter Source Date/Time Date/Time Type Type Clinicians Facility Department ID 2017-05-15 2017-05-15 Outpatient [facility] [id number] [place] 08:24:01 08:24:01 [facility] Office 2017-02-23 2017-02-23 Outpatient [facility] [id number] [address] [place] [address] 00:00:00 00:00:00 [facility] Results This patient has no known results.
== END 2020-01-15 15:18 | disposition left against medical advice (07) ==
LOC: ER 14:09
DX: Z02.89 Encounter for other administrative examinations (principal); Z53.21 Procedure and treatment not carried out due to patient leaving prior to being seen by health care provider

== ENCOUNTER 2020-01-17 10:58 | Emergency (ER) | payer SELFPAY ==
--- OUTSIDE RECORDS SUMMARY | 2020-01-17 11:01 | XMS REPORT | Continuity of Care Document ---
:1990 Author Organization [facility] t Address [address] [place] [address] Dr. Meraz [address] [place] [address] Care Team Providers Name Role Phone Unavailable [...] Clinicians Facility Department ID 2017-05-15 2017-05-15 Outpatient [facility] [id number] 7 [place] 08:24:01 08:24:01 [facility] Office 2017-02-23 2017-02-23 Outpatient [facility] [id number] [address] [place] [address] 00:00:00 00:00:00 [facility] Results This patient has no known results.
[2020-01-17] MEDS ORDERED: MORPHINE 4 MG/ML SYR ONE (12:01)
[2020-01-17] MEDS ORDERED: NA CHLORIDE 0.9% 1,000 ML ONE (12:01)
[2020-01-17] MEDS ORDERED: ONDANSETRON 4 MG/2 ML VIAL ONE (12:01)
[2020-01-17] MEDS ORDERED: FAMOTIDINE 20 MG/2 ML VIAL IV ONE (12:02)
[2020-01-17 12:18] LABS: Urine Blood TRACE (NEG); Urine Glucose NEGATIVE (NEG); Urine Protein NEGATIVE (NEG); Urine Specific Gravity >1.030 (1.005-1.030); Urine pH 5.5 (5.0-7.0)
[2020-01-17 12:24] LABS: Absolute Lymphocytes (CBC) 1.7 K/uL (0.7-4.9); Basophils % 0.5 % (0-1.3); Hematocrit 38.7 % (39.6-49.0); Lymphocytes % 18.4 % (15.3-44.8); MPV 8.9 fL (7.6-11.3); RBC Red Blood Cell Count 4.61 M/uL (4.33-5.43)
[2020-01-17 12:41] LABS: ALT/SGPT 34 U/L (12-78); AST/SGOT 18 U/L (15-37); Albumin 3.6 g/dL (3.4-5.0); Alkaline Phosphatase 139 U/L (45-117); BUN Blood Urea Nitrogen 9 mg/dL (7-18); Bicarbonate 25 mmol/L (21-32); Bilirubin Direct < 0.1 mg/dL (0-0.2); Bilirubin Total 0.2 mg/dL (0.2-1.0); Glucose Level 98 mg/dL (74-106); Lipase 107 U/L (73-393); Protein, Total 7.8 g/dL (6.4-8.2); Sodium Level 139 mmol/L (136-145)
--- NOTE | 2020-01-17 13:38 | RAD REPORT ---
EXAM DESCRIPTION: CTAbdomen Pelvis W Contrast - 01/17/2020 1:26 pm CLINICAL HISTORY: Abdominal pain. ABD PAIN COMPARISON: Abdomen Pelvis W Contrast dated 03/30/2019; Abdomen Pelvis W Contrast dated 12/24/2018 ; Abdomen Pelvis W Contrast dated 12/14/2018 TECHNIQUE: Biphasic CT imaging of the abdomen and pelvis was performed with 100 ml non-ionic IV cont rast. All CT scans are performed using dose optimization technique as appropriate and may include automated exposure control or mA/KV adjustment according to patient size. FINDINGS: The lung bases are clear.Small hiatal hernia. The liver, spleen, pancreas, adrenal glands and kidneys are within normal limits. No bowel obstruction, free air, free fluid or abscess. Mild sigmoid diverticulosis without diverticul itis. The appendix is normal. No evidence of significant lymphadenopathy. No suspicious bony findings. IMPRESSION: No acute intra-abdominal or pelvic finding.
--- NOTE | 2020-01-17 14:45 | ER ---
Nurse's Notes [facility] Name: Olivia Mosley Age: 29 yrs Sex: Male : 1990 Arrival Date: 01/17/2020 Time: 11:14 Bed 13 Private MD: Diagnosis: Gastritis, unspecified Presentation: 01/16 11:36 Chief complaint: Patient states: seen here a couple of days ago but the abdominal pain dm5 has gotten worse. it is now higher up and my stool is now green. Coronavirus screen: Surgical mask placed on patient. Patient moved to private room, placed in contact and droplet isolation with eye protection until further assessment. Patient denies a cough. Patient denies shortness of breath or difficulty breathing. Patient denies measured and/or subjective temperature greater than 100.4F prior to today's visit. Patient denies travel on a cruise ship or to a country the [facility] currently lists as an affected area. Patient denies contact with known and/or suspected case of COVID-19. Ebola Screen: Patient negative for fever greater than or equal to 101.5 degrees Fahrenheit, and additional compatible Ebola Virus Disease symptoms Patient denies exposure to infectious person. Patient denies travel to an Ebola-affected area in the 21 days before illness onset. No symptoms or risks identified at this time. Initial Sepsis Screen: Does the patient meet any 2 criteria? No. Patient's initial sepsis screen is negative. Does the patient have a suspected source of infection? Yes: Acute abdominal pain. Risk Assessment: Do you want to hurt yourself or someone else? Patient reports no desire to harm self or others. Onset of symptoms was January 14, 2020. 11:36 Method Of Arrival: Ambulatory dm5 11:36 Acuity: ARACELIS 3 dm5 Triage Assessment: 11:38 General: Appears in no apparent distress. Behavior is calm, cooperative. Pain: dm5 Complains of pain in epigastric area and suprapubic area Pain currently is 6 out of 10 on a pain scale. Neuro: Level of Consciousness is awake, alert, obeys commands, Oriented to person, place, time. GI: Abdomen is round Reports lower abdominal pain, upper abdominal pain. Historical: - Allergies: 11:38 No Known Allergies; dm5 - Home Meds: 11:38 None [Active]; dm5 - PMHx: 11:38 Hypertension; dm5 - Social history:: Patient/guardian denies using alcohol, street drugs, The patient lives with family. - Family history:: not pertinent. Vital Signs: 11:38 BP 134 / 94; Pulse 71; Resp 20; dm5 ED Course: 11:14 Patient arrived in ED. fj1 11:28 Mal Emanuel MD is Attending Physician. ma2 11:37 Triage completed. dm5 11:49 Tosin Carson, RN is Primary Nurse. dm5 12:31 Initial lab(s) drawn, by ct, sent to lab. Inserted saline lock: 20 gauge in right ah antecubital area, using aseptic technique. 13:26 CT Abd/Pelvis - IV Contrast Only In Process Unspecified. EDMS Administered Medications: 12:15 Drug: Pepcid 20 mg Route: IVP; Site: right antecubital; 13:00 Follow up: Response: Pain is decreased dm5 12:16 Drug: Zofran (Ondansetron) 4 mg Route: IVP; Site: right antecubital; 13:00 Follow up: Response: Nausea is decreased dm5 12:17 Drug: NS 0.9% 1000 ml Route: IV; Rate: 1 bolus; Site: right antecubital; 13:30 Follow up: IV Status: Completed infusion dm5 12:17 Drug: morphine 4 mg Route: IVP; Site: right antecubital; 13:00 Follow up: Response: Pain is decreased dm5 Outcome: 14:44 Discharge ordered by . ma2 15:05 Patient left the ED. dm5 Signatures: Dispatcher [employer] EDMS Tosin Carson, RN RN [facility] Mal Emanuel MD MD ma2 James, Frank [facility] Sarai [place], RN RN
--- NOTE | 2020-01-17 14:45 | EDPHYS ---
Physician Documentation [facility] Name: Olivia Mosley Age: 29 yrs Sex: Male : 1990 Arrival Date: 01/17/2020 Time: 11:14 Bed 13 Private MD: ED Physician Mal Emanuel HPI: 01/16 14:42 This 29 yrs old Black Male presents to ER via Ambulatory with complaints of Abdominal ma2 Pain, Black/Tarry Stools, Dizziness. 14:42 This 29 yrs old Black Male presents to ER via Ambulatory with complaints of Abdominal ma2 Pain, green Stools, . 14:42 The patient presents with generalized weakness. Onset: The symptoms/episode ma2 began/occurred gradually, 3 day(s) ago. Associated signs and symptoms: Pertinent negatives: ataxia, blurred vision, diaphoresis, focal weakness, palpitations, syncope. Severity of symptoms: At their worst the symptoms were mild moderate in the emergency department the symptoms are unchanged. The patient has not experienced similar symptoms in the past. no black stool, he has green stool. Historical: - Allergies: 11:38 No Known Allergies; dm5 - Home Meds: 11:38 None [Active]; dm5 - PMHx: 11:38 Hypertension; dm5 - Social history:: Patient/guardian denies using alcohol, street drugs, The patient lives with family. - Family history:: not pertinent. ROS: 14:42 Constitutional: Negative for fever, chills, and weight loss. ma2 14:42 All other systems are negative. Exam: 14:42 Constitutional: This is a well developed, well nourished patient who is awake, alert, ma2 and in no acute distress. Neck: Trachea midline, no thyromegaly or masses palpated, and no cervical lymphadenopathy. Supple, full range of motion without nuchal rigidity, or vertebral point tenderness. No Meningismus. Chest/axilla: Normal chest wall appearance and motion. Nontender with no deformity. No lesions are appreciated. Cardiovascular: Regular rate and rhythm with a normal S1 and S2. No gallops, murmurs, or rubs. Normal PMI, no JVD. No pulse deficits. Respiratory: Lungs have equal breath sounds bilaterally, clear to auscultation and percussion. No rales, rhonchi or wheezes noted. No increased work of breathing, no retractions or nasal flaring. Abdomen/GI: Soft, non-tender, with normal bowel sounds. No distension or tympany. No guarding or rebound. No evidence of tenderness throughout. MS/ Extremity: Pulses equal, no cyanosis. Neurovascular intact. Full, normal range of motion. Neuro: Awake and alert, GCS 15, oriented to person, place, time, and situation. Cranial nerves II-XII grossly intact. Motor strength 5/5 in all extremities. Sensory grossly intact. Cerebellar exam normal. Normal gait. Vital Signs: 11:38 BP 134 / 94; Pulse 71; Resp 20; dm5 MDM: 11:28 Patient medically screened. ma2 14:42 Differential diagnosis: generalized weakness, hypovolemia, gastritis vs pancreatitis. ma2 Data reviewed: vital signs, nurses notes. Counseling: I had a detailed discussion with the patient and/or guardian regarding: the historical points, exam findings, and any diagnostic results supporting the discharge/admit diagnosis, the presence of at least one elevated blood pressure reading (>120/80) during this emergency department visit, the need for outpatient follow up. Response to treatment: the patient's symptoms have markedly improved after treatment. 01/16 11:43 Order name: Urine Dipstick--Ancillary (enter results); Complete Time: 14:18 [facility] 01/16 11:49 Order name: Basic Metabolic Panel; Complete Time: 14:18 az2 01/16 11:49 Order name: CBC with Diff; Complete Time: 14:18 az2 01/16 11:49 Order name: Hepatic Function; Complete Time: 14:18 az2 01/16 11:49 Order name: Lipase; Complete Time: 14:18 az2 01/16 11:49 Order name: CT Abd/Pelvis - IV Contrast Only; Complete Time: 14:18 az2 01/16 11:49 Order name: IV Saline Lock; Complete Time: 12:32 az2 01/16 11:49 Order name: Labs collected and sent; Complete Time: 12:32 az2 01/16 11:49 Order name: Urine Dipstick-Ancillary (obtain specimen); Complete Time: 12:34 ma2 Administered Medications: 12:15 Drug: Pepcid 20 mg Route: IVP; Site: right antecubital; 13:00 Follow up: Response: Pain is decreased dm5 12:16 Drug: Zofran (Ondansetron) 4 mg Route: IVP; Site: right antecubital; 13:00 Follow up: Response: Nausea is decreased dm5 12:17 Drug: NS 0.9% 1000 ml Route: IV; Rate: 1 bolus; Site: right antecubital; 13:30 Follow up: IV Status: Completed infusion dm5 12:17 Drug: morphine 4 mg Route: IVP; Site: right antecubital; 13:00 Follow up: Response: Pain is decreased dm5 Disposition: 01/17/20 14:44 Discharged to Home. Impression: Gastritis, unspecified. - Condition is Stable. - Discharge Instructions: Gastritis, Adult. - Prescriptions for Pepcid 20 mg Oral Tablet - take 1 tablet by ORAL route every 12 hours for 10 days; 20 tablet. Zofran 4 mg Oral Tablet - take 1 tablet by ORAL route every 12 hours As needed; 20 tablet. - Medication Reconciliation Form, Thank You Letter, Antibiotic Education, Prescription Opioid Use, Work release form form. - Follow up: Private Physician; When: Tomorrow; Reason: If symptoms return, Continuance of care. Signatures: Dispatcher [employer] Tosin Leary RN RN dm5 Mal Emanuel MD MD az2 Sarai Thomas RN RN Corrections: (The following items were deleted from the chart) 15:05 14:44 01/17/2020 14:44 Discharged to Home. Impression: Gastritis, unspecified. dm5 Condition is Stable. Forms are Medication Reconciliation Form, Thank You Letter, Antibiotic Education, Prescription Opioid Use. Follow up: Private Physician; When: Tomorrow; Reason: If symptoms return, Continuance of care. maDanielle
[2020-01-17 15:14] VITALS: BP 134/94
== END 2020-01-17 15:05 | disposition home or self-care (01) ==
LOC: ER 10:58
DX: K29.70 Gastritis, unspecified, without bleeding (principal); I10 Essential (primary) hypertension
CPT/HCPCS: 36415; 74177; 80048; 80076; 81003; 83690; 85025; 96361; 96374; 96375; 99284; J2405; J7030; Q9967

== ENCOUNTER 2020-04-29 19:01 | Emergency (ER) | payer SELFPAY ==
--- OUTSIDE RECORDS SUMMARY | 2020-04-29 19:03 | XMS REPORT | Continuity of Care Document ---
:1990 Author Organization [facility] t Address [address] [place] [address] Dr. Meraz [address] [place] [id number] Care Team Providers Name Role Phone Unavailable [...] Clinicians Facility Department ID 2017-05-15 2017-05-15 Outpatient [facility] [id number] 7 [place] 08:24:01 08:24:01 [facility] Office 2017-02-23 2017-02-23 Outpatient [facility] [id number] [address] [place] [address] 00:00:00 00:00:00 [facility] Results This patient has no known results.
[2020-04-29] MEDS ORDERED: NA CHLORIDE 0.9% 1,000 ML ONE (19:31)
[2020-04-29 19:41] LABS: Absolute Lymphocytes (CBC) 2.3 K/uL (0.7-4.9); Basophils % 0.6 % (0-1.3); Hematocrit 38.3 % (39.6-49.0); Lymphocytes % 21.1 % (15.3-44.8); MPV 9.1 fL (7.6-11.3); RBC Red Blood Cell Count 4.58 M/uL (4.33-5.43)
[2020-04-29 20:12] LABS: ALT/SGPT 32 U/L (12-78); AST/SGOT 17 U/L (15-37); Albumin 3.6 g/dL (3.4-5.0); Alkaline Phosphatase 144 U/L (45-117); BUN Blood Urea Nitrogen 13 mg/dL (7-18); Bicarbonate 26 mmol/L (21-32); Bilirubin Direct < 0.1 mg/dL (0-0.2); Bilirubin Total 0.1 mg/dL (0.2-1.0); Glucose Level 103 mg/dL (74-106); Lipase 153 U/L (73-393); Potassium 3.5 mmol/L (3.5-5.1); Protein, Total 7.9 g/dL (6.4-8.2); Sodium Level 139 mmol/L (136-145)
--- NOTE | 2020-04-29 20:43 | RAD REPORT ---
EXAM DESCRIPTION: CT - Abdomen Pelvis W Contrast - 04/29/2020 8:28 pm CLINICAL HISTORY: ABD PAIN COMPARISON: Abdomen Pelvis W Contrast dated 01/17/2020 TECHNIQUE: Biphasic, helical CT imaging of the abdomen and pelvis was performed following 100 ml non -ionic IV contrast. No oral contrast administered. All CT scans are performed using dose optimization technique as appropriate and may include automated exposure control or mA/KV adjustment according to patient size. FINDINGS: No suspicious findings in the lung bases. The liver, spleen, and pancreas show no suspicious findings. Gallbladder is tightly contracted. No bi liary tree dilatation. Symmetric renal function is seen with no hydronephrosis or suspicious renal mass. No pyelonephritis o r acute parenchymal process. No bladder abnormalities. No adrenal abnormalities. No dilated bowel loops or bowel wall thickening. Appendix is normal. No free air, free fluid or infla mmatory stranding. No hernia, mass or bulky lymphadenopathy. No suspicious bony findings. IMPRESSION: Contrast enhanced CT abdomen and pelvis showing no acute or emergent finding.
--- NOTE | 2020-04-29 20:48 | RAD REPORT ---
EXAM DESCRIPTION: RAD - Chest Single View - 04/29/2020 7:57 pm CLINICAL HISTORY: COUGH COMPARISON: PA chest January 2019 TECHNIQUE: AP portable chest image was obtained 04/29/2020 7:57 pm . FINDINGS: Lung volumes are low accentuating interstitial pattern. No peripheral mass or consolidatio n. Failure and volume overload are not suspected. Heart and vasculature are normal. No measurable ple ural effusion and no pneumothorax. No acute bony abnormality seen. No acute aortic findings suspected . IMPRESSION: No acute cardiopulmonary process. No significant interval change.
--- NOTE | 2020-04-29 20:50 | ER ---
Nurse's Notes [facility] Name: Olivia Mosley Age: 29 yrs Sex: Male : 1990 Arrival Date: 04/29/2020 Time: 19:04 Bed 20 Private MD: Diagnosis: Acute upper respiratory infection, unspecified;Diarrhea, unspecified Presentation: 04/29 19:10 Chief complaint: Patient states: his head feels heavy and he has had a cough for the bb last 3 to 4 days he is coughing so much he vomits then has diarrhea, denies fever. Coronavirus screen: cough unrelated to allergies, diarrhea, headache, Client presents with at least one sign or symptom that may indicate coronavirus-19. Standard/surgical mask placed on the client. Ebola Screen: No symptoms or risks identified at this time. Initial Sepsis Screen: Does the patient meet any 2 criteria? No. Patient's initial sepsis screen is negative. Does the patient have a suspected source of infection? No. Patient's initial sepsis screen is negative. Risk Assessment: Do you want to hurt yourself or someone else? Patient reports no desire to harm self or others. Onset of symptoms was April 25, 2020. 19:10 Method Of Arrival: Ambulatory bb 19:10 Acuity: ARACELIS 3 bb Historical: - Allergies: 19:28 No Known Allergies; bb - Home Meds: 19:28 None [Active]; bb - PMHx: 19:28 Hypertension; bb - PSHx: 19:28 None; bb - Immunization history:: Adult Immunizations up to date. - Social history:: Smoking status: Patient reports the use of cigarette tobacco products, smokes one pack cigarettes per day. Patient uses alcohol, occasionally. Patient/guardian denies using street drugs. Screenin:25 Abuse screen: Denies threats or abuse. Denies injuries from another. Nutritional ca1 screening: No deficits noted. Tuberculosis screening: No symptoms or risk factors identified. Fall Risk IV access (20 points). Assessment: 19:25 General: Appears in no apparent distress. comfortable, Behavior is calm, cooperative, ca1 appropriate for age. Pain: Denies pain. Neuro: Level of Consciousness is awake, alert, obeys commands, Oriented to person, place, time, situation. Cardiovascular: Heart tones S1 S2 present Capillary refill < 3 seconds Patient's skin is warm and dry. Respiratory: Airway is patent Respiratory effort is even, unlabored, Respiratory pattern is regular, symmetrical, Breath sounds are clear bilaterally. Respiratory: Reports cough that is since 3-4 days. GI: Abdomen is flat, non-distended, Bowel sounds present X 4 quads. Abd is soft and non tender X 4 quads. Reports diarrhea, since 3-4 days. : No signs and/or symptoms were reported regarding the genitourinary system. EENT: No signs and/or symptoms were reported regarding the EENT system. Derm: Skin is intact, is healthy with good turgor, Skin is pink, warm \T\ dry. Musculoskeletal: Circulation, motion, and sensation intact. Capillary refill < 3 seconds. 20:15 Reassessment: Patient appears in no apparent distress at this time. Patient and/or ca1 family updated on plan of care and expected duration. Pain level reassessed. Patient is alert, oriented x 3, equal unlabored respirations, skin warm/dry/pink. 20:56 Reassessment: Patient appears in no apparent distress at this time. Patient is alert, ca1 oriented x 3, equal unlabored respirations, skin warm/dry/pink. 21:42 Reassessment: Patient appears in no apparent distress at this time. Patient is alert, ca1 oriented x 3, equal unlabored respirations, skin warm/dry/pink. Vital Signs: 19:10 BP 135 / 85; Pulse 107; Resp 18 S; Temp 99.5(O); Pulse Ox 100% on R/A; Weight 81.65 kg bb (R); Height 5 ft. 6 in. (167.64 cm) (R); Pain 5/10; 20:15 BP 116 / 75; Pulse 94; Resp 15 S; Pulse Ox 100% on R/A; ca1 20:56 BP 135 / 83; Pulse 86; Resp 16 S; Pulse Ox 100% on R/A; ca1 21:42 BP 133 / 85; Pulse 91; Resp 16 S; Pulse Ox 100% on R/A; ca1 19:10 Body Mass Index 29.05 (81.65 kg, 167.64 cm) bb ED Course: 19:04 Patient arrived in ED. ds1 19:08 Bonnie Gar F[facility]-C [facility]. kb 19:08 Brian Madrid MD is Attending Physician. kb 19:16 Vanita Ordonez, RN is Primary Nurse. ca1 19:22 No provider procedures requiring assistance completed. Initial lab(s) drawn, by me, ca1 sent to lab. Inserted saline lock: 20 gauge in right antecubital area, using aseptic technique. Blood collected. 19:25 Flu Sent. ca1 19:25 Patient has correct armband on for positive identification. Bed in low position. Call ca1 light in reach. Side rails up X 1. Pulse ox on. NIBP on. Warm blanket given. 19:28 Triage completed. bb 19:28 Arm band placed on Patient placed in an exam room, on a stretcher, on pulse oximetry. bb Family accompanied patient. 19:57 Chest Single View XRAY In Process Unspecified. EDMS 20:28 CT Abd/Pelvis - IV Contrast Only In Process Unspecified. EDMS 21:49 IV discontinued, intact, bleeding controlled, No redness/swelling at site. Pressure ca1 dressing applied. Administered Medications: 19:25 Drug: NS 0.9% 1000 ml Route: IV; Rate: 1000 ml; Site: right antecubital; ca1 21:50 Follow up: Response: No adverse reaction; IV Status: Completed infusion; IV Intake: ca1 1000ml Intake: 21:50 IV: 1000ml; Total: 1000ml. ca1 Outcome: 20:49 Discharge ordered by . kb 21:49 Discharged to home ambulatory, with significant other. ca1 21:49 Condition: stable 21:49 Discharge instructions given to patient, Instructed on discharge instructions, follow up and referral plans. medication usage, Demonstrated understanding of instructions, follow-up care, medications, Prescriptions given X 1. 21:50 Patient left the ED. ca1 Signatures: Dispatcher [employer] EDMS Bonnie Gar, RENTAL CAR FERRY DRIVER-C RENTAL CAR FERRY DRIVER-Theresa Warren ds1 Rupinder Lombardo RN RN bb Vanita Ordonez, JIMMY RN ca1
--- NOTE | 2020-04-29 20:50 | EDPHYS ---
Physician Documentation [facility] Name: Olivia Mosley Age: 29 yrs Sex: Male : 1990 Arrival Date: 04/29/2020 Time: 19:04 Bed 20 Private MD: ED Physician Brian Madrid HPI: 04/29 19:26 This 29 yrs old Black Male presents to ER via Unassigned with complaints of Diarrhea, kb Cough, Headache. 19:26 The patient presents to the emergency department with vomiting, diarrhea. Onset: The kb symptoms/episode began/occurred 4 day(s) ago. Possible causes: unknown. The symptoms are aggravated by nothing. The symptoms are alleviated by nothing. Associated signs and symptoms: Pertinent positives: diarrhea, vomiting, Pertinent negatives: abdominal pain, anorexia, belching, constipation, dysuria, fever, flatulence, GI bleeding, hematuria. Severity of symptoms: At their worst the symptoms were moderate in the emergency department the symptoms are unchanged. The patient has not experienced similar symptoms in the past. The patient has not recently seen a physician. Pt reports cough that sometimes causes him to vomit, diarrhea and headache for 3-4 days. . Historical: - Allergies: 19:28 No Known Allergies; bb - Home Meds: 19:28 None [Active]; bb - PMHx: 19:28 Hypertension; bb - PSHx: 19:28 None; bb - Immunization history:: Adult Immunizations up to date. - Social history:: Smoking status: Patient reports the use of cigarette tobacco products, smokes one pack cigarettes per day. Patient uses alcohol, occasionally. Patient/guardian denies using street drugs. ROS: 19:24 Constitutional: Negative for fever, chills, and weight loss, Cardiovascular: Negative kb for chest pain, palpitations, and edema, Back: Negative for injury and pain, MS/Extremity: Negative for injury and deformity, Skin: Negative for injury, rash, and discoloration, Neuro: Negative for weakness, numbness, tingling, and seizure. +headache 19:24 Respiratory: Positive for cough, Negative for dyspnea on exertion, hemoptysis, orthopnea, pleurisy, shortness of breath, sputum production, wheezing. 19:24 Abdomen/GI: Positive for nausea, vomiting, and diarrhea, Negative for abdominal pain. Exam: 19:25 Constitutional: This is a well developed, well nourished patient who is awake, alert, kb and in no acute distress. Head/Face: Normocephalic, atraumatic. Chest/axilla: Normal chest wall appearance and motion. Nontender with no deformity. No lesions are appreciated. Cardiovascular: Regular rate and rhythm with a normal S1 and S2. No gallops, murmurs, or rubs. Normal PMI, no JVD. No pulse deficits. Respiratory: Lungs have equal breath sounds bilaterally, clear to auscultation and percussion. No rales, rhonchi or wheezes noted. No increased work of breathing, no retractions or nasal flaring. Skin: Warm, dry with normal turgor. Normal color with no rashes, no lesions, and no evidence of cellulitis. MS/ Extremity: Pulses equal, no cyanosis. Neurovascular intact. Full, normal range of motion. Neuro: Awake and alert, GCS 15, oriented to person, place, time, and situation. Cranial nerves II-XII grossly intact. Motor strength 5/5 in all extremities. Sensory grossly intact. Cerebellar exam normal. Normal gait. 19:25 Abdomen/GI: Inspection: abdomen appears normal, Bowel sounds: normal, in all quadrants, Palpation: soft, in all quadrants, mild abdominal tenderness, in the right upper quadrant, left upper quadrant and left lower quadrant. Vital Signs: 19:10 BP 135 / 85; Pulse 107; Resp 18 S; Temp 99.5(O); Pulse Ox 100% on R/A; Weight 81.65 kg bb (R); Height 5 ft. 6 in. (167.64 cm) (R); Pain 5/10; 20:15 BP 116 / 75; Pulse 94; Resp 15 S; Pulse Ox 100% on R/A; ca1 20:56 BP 135 / 83; Pulse 86; Resp 16 S; Pulse Ox 100% on R/A; ca1 21:42 BP 133 / 85; Pulse 91; Resp 16 S; Pulse Ox 100% on R/A; ca1 19:10 Body Mass Index 29.05 (81.65 kg, 167.64 cm) MDM: 19:09 Patient medically screened. kb 19:24 Data reviewed: vital signs, nurses notes. Data interpreted: Pulse oximetry: on room air kb is 100 %. Interpretation: normal. 20:49 Counseling: I had a detailed discussion with the patient and/or guardian regarding: the kb historical points, exam findings, and any diagnostic results supporting the discharge/admit diagnosis, lab results, radiology results, the need for outpatient follow up, a family practitioner, to return to the emergency department if symptoms worsen or persist or if there are any questions or concerns that arise at home. 04/29 19:13 Order name: Basic Metabolic Panel; Complete Time: 20:13 kb 04/29 19:13 Order name: CBC with Diff; Complete Time: 19:53 kb 04/29 19:13 Order name: Hepatic Function; Complete Time: 20:13 kb 04/29 19:13 Order name: Lipase; Complete Time: 20:13 kb 04/29 19:13 Order name: Chest Single View XRAY; Complete Time: 21:01 kb 04/29 19:13 Order name: Flu; Complete Time: 19:53 kb 04/29 19:13 Order name: IV Saline Lock; Complete Time: 19:25 kb 04/29 19:13 Order name: Labs collected and sent; Complete Time: 19:25 kb 04/29 19:54 Order name: CT Abd/Pelvis - IV Contrast Only; Complete Time: 20:49 kb Administered Medications: 19:25 Drug: NS 0.9% 1000 ml Route: IV; Rate: 1000 ml; Site: right antecubital; ca1 21:50 Follow up: Response: No adverse reaction; IV Status: Completed infusion; IV Intake: ca1 1000ml Disposition: 04/30 07:27 Co-signature as Attending Physician, Brian Madrid MD I agree with the assessment and kdr plan of care. Disposition: 04/29/20 20:49 Discharged to Home. Impression: Acute upper respiratory infection, unspecified, Diarrhea, unspecified. - Condition is Stable. - Discharge Instructions: Diarrhea, Adult, Raja-hp-Xiqu, Viral Respiratory Infection, Iwse-Lx-Dbml. - Prescriptions for Tessalon Perles 100 mg Oral Capsule - take 1 capsule by ORAL route every 8 hours As needed; 15 capsule. - Medication Reconciliation Form, Thank You Letter, Antibiotic Education, Prescription Opioid Use, Work release form form. - Follow up: Emergency Department; When: As needed; Reason: Worsening of condition. Follow up: Private Physician; When: 2 - 3 days; Reason: Recheck today's complaints, Continuance of care, Re-evaluation by your physician. Signatures: Dispatcher [employer] EDMS Bonnie Gar, BLANKET CUTTER HAND-C BLANKET CUTTER HAND-Ckb Brian Madrid MD MD kdr Rupinder Lombardo, RN RN bb Vanita Ordonez RN RN ca1 Corrections: (The following items were deleted from the chart) 04/29 19:25 19:24 Constitutional: Negative for fever, chills, and weight loss, Cardiovascular: kb Negative for chest pain, palpitations, and edema, Back: Negative for injury and pain, MS/Extremity: Negative for injury and deformity, Skin: Negative for injury, rash, and discoloration, Neuro: Negative for headache, weakness, numbness, tingling, and seizure, kb 21:50 20:49 04/29/2020 20:49 Discharged to Home. Impression: Acute upper respiratory ca1 infection, unspecified; Diarrhea, unspecified. Condition is Stable. Forms are Medication Reconciliation Form, Thank You Letter, Antibiotic Education, Prescription Opioid Use. Follow up: Emergency Department; When: As needed; Reason: Worsening of condition. Follow up: Private Physician; When: 2 - 3 days; Reason: Recheck today's complaints, Continuance of care, Re-evaluation by your physician. kb
[2020-04-29 22:22] VITALS: TEMP 99.5; O2SAT 100
[2020-04-29 22:26] VITALS: BP 133/85
== END 2020-04-29 21:50 | disposition home or self-care (01) ==
LOC: ER 19:01
DX: J06.9 Acute upper respiratory infection, unspecified (principal); R19.7 Diarrhea, unspecified; I10 Essential (primary) hypertension; F17.210 Nicotine dependence, cigarettes, uncomplicated
CPT/HCPCS: 36415; 71045; 74177; 80048; 80076; 83690; 85025; 87804; 96360; 96361; 99284; J7030; Q9967

== ENCOUNTER 2020-07-08 13:31 | Emergency (ER) | payer SELFPAY ==
--- OUTSIDE RECORDS SUMMARY | 2020-07-08 13:41 | XMS REPORT | Continuity of Care Document ---
:1990 Author Organization [facility] t Address [address] [place] [address] Dr. Meraz [address] [place] [id number] Care Team Providers Name Role Phone Unavailable [...] Facility Department ID 2017-05-15 2017-05-15 Outpatient [facility] [id number] 7 [place] 08:24:01 08:24:01 [facility] Office 2017-02-23 2017-02-23 Outpatient [facility] [id number] [address] [place] [address] 00:00:00 00:00:00 [facility] Results This patient has no known results.
--- NOTE | 2020-07-08 16:13 | ER ---
Nurse's Notes [facility] Name: Olivia Mosley Age: 29 yrs Sex: Male : 1990 Arrival Date: 07/08/2020 Time: 13:35 Bed Waiting Private MD: Diagnosis: Presentation: 07/08 13:45 Chief complaint: Patient states: R breast abscess since Sunday getting progressively ll1 more tender and larger. No drainage. Coronavirus screen: Client denies travel out of the [place] in the last 14 days. At this time, the client does not indicate any symptoms associated with coronavirus-19. Ebola Screen: Patient denies travel to an Ebola-affected area in the 21 days before illness onset. Initial Sepsis Screen: Does the patient meet any 2 criteria? No. Patient's initial sepsis screen is negative. Does the patient have a suspected source of infection? Yes: Skin breakdown/wound. Risk Assessment: Do you want to hurt yourself or someone else? Patient reports no desire to harm self or others. Onset of symptoms was July 05, 2020. 13:45 Method Of Arrival: Ambulatory ll1 13:45 Acuity: ARACELIS 4 ll1 Triage Assessment: 13:45 General: Appears uncomfortable, Behavior is calm, cooperative, appropriate for age. ll1 Pain: Complains of pain in R breast Quality of pain is described as aching, Aggravated by increased activity. Neuro: No deficits noted. Cardiovascular: No deficits noted. Respiratory: No deficits noted. Derm: Abscess located on R breast is dime sized, has no drainage, is raised, Reports pain. Historical: - Allergies: 13:45 No Known Allergies; ll1 - PMHx: 13:45 Hypertension; dislocated shoulder-L; ll1 - PSHx: 13:45 None; ll1 - Immunization history:: Flu vaccine is not up to date. - Social history:: Smoking status: Patient reports the use of cigarette tobacco products, smokes two packs cigarettes per day. Vital Signs: 13:45 BP 141 / 94; Pulse 89; Resp 20; Temp 98.9; Pulse Ox 100% ; Weight 80.74 kg; Height 5 ll1 ft. 6 in. (167.64 cm); Pain 7/10; 13:45 Body Mass Index 28.73 (80.74 kg, 167.64 cm) ll1 ED Course: 13:35 Patient arrived in ED. as 13:45 Arm band placed on. ll1 13:47 Triage completed. ll1 16:06 Not in ER lobby when called to room for physician evaluation. Left without being seen. ll1 Administered Medications: No medications were administered Outcome: 16:12 Patient left the ED. ll1 Signatures: Brianna Rose Lynsay, RN RN 1
== END 2020-07-08 16:12 | disposition left against medical advice (07) ==
LOC: ER 13:31
DX: Z53.21 Procedure and treatment not carried out due to patient leaving prior to being seen by health care provider (principal)
CPT/HCPCS: 99281

== ENCOUNTER 2020-07-08 23:27 | Emergency (ER) | payer SELFPAY ==
--- OUTSIDE RECORDS SUMMARY | 2020-07-08 23:29 | XMS REPORT | Continuity of Care Document ---
:1990 Author Organization [facility] t Address [address] [place] [address] Dr. Meraz [address] [place] [id number] Care Team Providers Name Role Phone Unavailable [...] Clinicians Facility Department ID 2017-05-15 2017-05-15 Outpatient [facility] [id number] 7 [place] 08:24:01 08:24:01 [facility] Office 2017-02-23 2017-02-23 Outpatient [facility] [id number] [address] [place] [address] 00:00:00 00:00:00 [facility] Results This patient has no known results.
--- NOTE | 2020-07-09 00:15 | ER ---
Nurse's Notes [facility] Name: Olivia Mosley Age: 29 yrs Sex: Male : 1990 Arrival Date: 07/08/2020 Time: 23:28 Bed 8 Private MD: Diagnosis: Cutaneous abscess of chest wall Presentation: 07/08 23:30 Chief complaint: Patient states: Abscess to right breast, that is raised and draining, sg no other symptoms reported for traige. Coronavirus screen: Client denies travel out of the [place] in the last 14 days. At this time, the client does not indicate any symptoms associated with coronavirus-19. Ebola Screen: Patient negative for fever greater than or equal to 101.5 degrees Fahrenheit, and additional compatible Ebola Virus Disease symptoms Patient denies exposure to infectious person. Patient denies travel to an Ebola-affected area in the 21 days before illness onset. No symptoms or risks identified at this time. Initial Sepsis Screen: Does the patient meet any 2 criteria? No. Patient's initial sepsis screen is negative. Does the patient have a suspected source of infection? Yes: Skin breakdown/wound. Risk Assessment: Do you want to hurt yourself or someone else? Patient reports no desire to harm self or others. Onset of symptoms was July 06, 2020. Care prior to arrival: None. Transition of care: patient was not received from another setting of care. 23:30 Method Of Arrival: Ambulatory sg 23:30 Acuity: ARACELIS 4 sg Historical: - Allergies: 23:32 No Known Allergies; sg - PMHx: 23:32 dislocated shoulder-L; Hypertension; sg - PSHx: 23:32 None; sg - Immunization history:: Adult Immunizations up to date. - Social history:: Smoking status: Patient denies any tobacco usage or history of. Screenin/25 00:00 Abuse screen: Denies threats or abuse. Denies injuries from another. Nutritional wh screening: No deficits noted. Tuberculosis screening: No symptoms or risk factors identified. Fall Risk None identified. Assessment: 00:00 General: Appears in no apparent distress. Behavior is calm, cooperative, appropriate wh for age. Pain: Complains of pain in right breast. Neuro: Level of Consciousness is awake, alert, obeys commands, Oriented to person, place, time, situation, Appropriate for age. Cardiovascular: Capillary refill < 3 seconds. Respiratory: Airway is patent Respiratory effort is even, unlabored, Respiratory pattern is regular, symmetrical. GI: Abdomen is flat, non-distended. : No signs and/or symptoms were reported regarding the genitourinary system. EENT: No deficits noted. Derm: abscess on right chest. Musculoskeletal: Circulation, motion, and sensation intact. Vital Signs: 07/08 23:45 BP 138 / 88; Pulse 84; Resp 18; Temp 98.2; Pulse Ox 99% on R/A; ED Course: 23:28 Patient arrived in ED. cl3 23:32 Triage completed. sg 23:32 Arm band placed on. sg 23:47 Micah Diop NP is PHCP. pm1 23:47 Bi Reyes MD is Attending Physician. pm1 07/09 00:00 Patient has correct armband on for positive identification. Bed in low position. Call light in reach. Side rails up X 1. Pulse ox on. NIBP on. 00:13 Stewart Overton is Primary Nurse. 00:35 No provider procedures requiring assistance completed. Patient did not have IV access during this emergency room visit. Administered Medications: 00:19 Drug: Tetanus-Diphtheria Toxoid Adult 0.5 ml {Search Engine Optimization Analyst: Droid system master. Exp: 10/30/2021. Lot #: [id number]. } Route: IM; Site: right deltoid; 00:31 Follow up: Response: No adverse reaction 00:19 Drug: Bactrim (160 mg-800 mg (DS) 1 tablet Route: PO; 00:31 Follow up: Response: No adverse reaction Outcome: 00:14 Discharge ordered by . pm1 00:35 Discharged to home ambulatory. 00:35 Condition: stable 00:35 Discharge instructions given to patient, Instructed on discharge instructions, follow up and referral plans. medication usage, POC Demonstrated understanding of instructions, follow-up care, medications, POC Prescriptions given X 2. 00:35 Patient left the ED. Signatures: Jan Dougherty, RN RN Micah Diop, GEAR DESIGN ENGINEER GEAR DESIGN ENGINEER pm1 Stewart Overton Bhavya Ruth cl3
--- NOTE | 2020-07-09 00:15 | EDPHYS ---
Physician Documentation [facility] Name: Olivia Mosley Age: 29 yrs Sex: Male : 1990 Arrival Date: 07/08/2020 Time: 23:28 Bed 8 Private MD: ED Physician Bi Reyes HPI: 07/09 00:15 This 29 yrs old Black Male presents to ER via Ambulatory with complaints of Abscess. pm1 00:15 The patient presents with an abscess of the right breast. Description: The affected pm1 area is small, approximately 1 cm(s). Onset: The symptoms/episode began/occurred 3 day(s) ago. Possible cause(s): plucking out hairs around his nipple. Associated signs and symptoms: Pertinent negatives: discharge, drainage, fever. Modifying factors: the symptoms are alleviated by nothing, the symptoms are aggravated by touching. Severity of symptoms: in the emergency department the symptoms are actually worse. Historical: - Allergies: 07/08 23:32 No Known Allergies; sg - PMHx: 23:32 dislocated shoulder-L; Hypertension; sg - PSHx: 23:32 None; sg - Immunization history:: Adult Immunizations up to date. - Social history:: Smoking status: Patient denies any tobacco usage or history of. ROS: 07/09 00:15 Constitutional: Negative for fever, chills, and weight loss. pm1 Cardiovascular: Negative for chest pain, palpitations, and edema, Respiratory: Negative for shortness of breath, cough, wheezing, and pleuritic chest pain, Abdomen/GI: Negative for abdominal pain, nausea, vomiting, diarrhea, and constipation, MS/Extremity: Negative for injury and deformity. Neuro: Negative for headache, weakness, numbness, tingling, and seizure. Skin: Positive for abscess, Negative for cellulitis. Exam: 00:15 Constitutional: This is a well developed, well nourished patient who is awake, alert, pm1 and in no acute distress. 00:15 MS/ Extremity: Pulses equal, no cyanosis. Neurovascular intact. Full, normal range of motion. 00:15 Chest/axilla: Inspection: cutaneous phlegmon present just above right nipple. Needle aspiration with 18 gauge needle post prep with Betadine. No purulent drainage present with aspiration. No surrounding cellulitis. 00:15 Cardiovascular: Exam negative for acute changes, Rate: normal, Rhythm: regular, Pulses: no pulse deficits are appreciated. 00:15 Respiratory: Exam negative for acute changes, respiratory distress, shortness of breath. 00:15 Skin: Appearance: normal except for affected area, phlegmon as noted on chest exam. 00:15 Neuro: Exam negative for acute changes, Orientation: is normal, Mentation: is normal, Motor: is normal, moves all fours. Vital Signs: 07/08 23:45 BP 138 / 88; Pulse 84; Resp 18; Temp 98.2; Pulse Ox 99% on R/A; MDM: 23:47 Patient medically screened. pm1 07/09 00:12 Counseling: I had a detailed discussion with the patient and/or guardian regarding: the pm1 historical points, exam findings, and any diagnostic results supporting the discharge/admit diagnosis, the need for outpatient follow up, to return to the emergency department if symptoms worsen or persist or if there are any questions or concerns that arise at home. 00:38 Data reviewed: vital signs. pm1 Administered Medications: 00:19 Drug: Tetanus-Diphtheria Toxoid Adult 0.5 ml {Stripe Matcher: [email or web address]. Exp: 10/30/2021. Lot #: [id number]. } Route: IM; Site: right deltoid; 00:31 Follow up: Response: No adverse reaction 00:19 Drug: Bactrim (160 mg-800 mg (DS) 1 tablet Route: PO; 00:31 Follow up: Response: No adverse reaction Disposition: 05:32 Co-signature as Attending Physician, Bi Reyes MD. mh7 Disposition: 07/09/20 00:14 Discharged to Home. Impression: Cutaneous abscess of chest wall. - Condition is Stable. - Discharge Instructions: Skin Abscess. - Prescriptions for Tramadol 50 mg Oral Tablet - take 1 tablet by ORAL route every 8 hours as needed; 12 tablet. Bactrim DS 800- 160 mg Oral Tablet - take 1 tablet by ORAL route every 12 hours for 10 days; 20 tablet. - Work release form, Medication Reconciliation Form, Thank You Letter, Antibiotic Education, Prescription Opioid Use form. - Follow up: Emergency Department; When: As needed; Reason: Worsening of condition. Follow up: Private Physician; When: 2 - 3 days; Reason: Recheck today's complaints, Continuance of care, Re-evaluation by your physician. - Problem is new. - Symptoms have improved. Signatures: Jan Dougherty, RN RN Micah Morejon NP BRIM PLATER pm1 Stewart Overton Bi Reyes MD MD mh7 Corrections: (The following items were deleted from the chart) 00:35 00:14 07/09/2020 00:14 Discharged to Home. Impression: Cutaneous abscess of chest wall. Condition is Stable. Forms are Medication Reconciliation Form, Thank You Letter, Antibiotic Education, Prescription Opioid Use. Follow up: Emergency Department; When: As needed; Reason: Worsening of condition. Follow up: Private Physician; When: 2 - 3 days; Reason: Recheck today's complaints, Continuance of care, Re-evaluation by your physician. Problem is new. Symptoms have improved. pm1
[2020-07-09] MEDS ORDERED: TETANUS & DIPHTHERIA TOX,ADULT 0.5 ML VIAL ONE (00:31)
[2020-07-09] MEDS ORDERED: SMZ./TMP. 800/160 MG TABLET ONE (00:31)
[2020-07-09 01:05] VITALS: BP 138/88; TEMP 98.2; O2SAT 99
== END 2020-07-09 00:35 | disposition home or self-care (01) ==
LOC: ER 23:27
DX: L02.213 Cutaneous abscess of chest wall (principal); I10 Essential (primary) hypertension; Z23 Encounter for immunization
CPT/HCPCS: 90471; 90714; 99283

== ENCOUNTER 2021-09-06 12:18 | Emergency (ER) | payer OTHER ==
--- OUTSIDE RECORDS SUMMARY | 2021-09-06 12:20 | XMS REPORT | Continuity of Care Document ---
:[address] [facility] t Address [address] [place] [address] Dr. Meraz [address] [place] [id number] Care Team Providers Name Role Phone Unavailable [...] Clinicians Facility Department ID 2017-05-15 2017-05-15 Outpatient [facility] [id number] [place] 08:24:01 08:24:01 [facility] 2017-02-23 2017-02-23 Outpatient [facility] [id number] [place] 00:00:00 00:00:00 [facility] 2017-02-16 2017-02-[address] [facility] [id number] [place] 18:46:01 18:46:01 Health 2017-02-16 2017-02-16 Emergency [facility] [id number] [place] 18:10:00 18:10:00 Health Results This patient has no known results.
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
[2021-09-06 14:26] VITALS: TEMP 98.9; O2SAT 100
[2021-09-06 14:27] VITALS: BP 150/96
== END 2021-09-06 14:11 | disposition home or self-care (01) ==
LOC: ER 12:18
DX: M54.2 Cervicalgia (principal); V49.50XA Passenger injured in collision with unspecified motor vehicles in traffic accident, initial encounter; I10 Essential (primary) hypertension; Z72.0 Tobacco use
CPT/HCPCS: 70450; 71250; 72125; 99284

== ENCOUNTER 2023-03-18 00:29 | Emergency (ER) | payer SELFPAY ==
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
[2023-03-18] MEDS ORDERED: IBUPROFEN 400 MG TAB ONE (01:30)
[2023-03-18] MEDS ORDERED: HYDROCODONE/APAP 10/325 TAB ONE (01:30)
--- NOTE | 2023-03-18 17:32 | RAD REPORT ---
EXAM DESCRIPTION: RAD - Hand Left 3 View - 03/18/2023 1:03 am CLINICAL HISTORY: 32 years, Male, PAIN COMPARISON: None FINDINGS: 3 X-ray views of the left hand (Frontal, lateral and oblique views) were performed. There is a small nondisplaced fracture medial-palmar aspect base middle phalanx extending into the ar ticular surface of the PIP joint third finger, best demonstrated on the oblique view. The rest of the hand demonstrate to be unremarkable. There are no gross intraosseous lesions. No periosteal reac tion were seen. Carpal bones demonstrate to be within normal limits. IMPRESSION: Small nondisplaced fracture base of the middle phalanx of the third finger. Electronically signed by: Ozzy Villalobos MD 03/18/2023 1:25 AM CDT Due to temporary technical issues with the PACS/Fluency reporting system, reports are being signed by the in house radiologists without review as a courtesy to insure prompt reporting. The interpreting radiologist is fully responsible for the content of the report.
--- NOTE | 2023-03-18 17:34 | RAD REPORT ---
EXAM DESCRIPTION: RAD - Wrist Left 3 View - 03/18/2023 1:03 am CLINICAL HISTORY: 32 years, Male, PAIN COMPARISON: None FINDINGS: 3 X-ray views of the left wrist (Frontal, lateral and oblique views) were performed. No acute bony injuries were demonstrated. No gross articular or soft tissue abnormality is identifi ed. There are no gross intraosseous lesions. No periosteal reaction were seen. Scaphoid bone de monstrate to be unremarkable. IMPRESSION: No acute bony injuries were demonstrated. Electronically signed by: Ozzy Villalobos MD 03/18/2023 1:26 AM CDT Due to temporary technical issues with the PACS/Fluency reporting system, reports are being signed by the in house radiologists without review as a courtesy to insure prompt reporting. The interpreting radiologist is fully responsible for the content of the report.
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
== END 2023-03-18 01:52 | disposition home or self-care (01) ==
LOC: ER 00:29
DX: S09.90XA Unspecified injury of head, initial encounter (principal); S63.681A Other sprain of right thumb, initial encounter; S60.032A Contusion of left middle finger without damage to nail, initial encounter
CPT/HCPCS: 70450; 99283